=== PATIENT | male | born 1965 | race Two or more races ===

== ENCOUNTER 2024-03-30 11:08 | Outpatient (AMB) | payer MEDICARE, OTHER, MEDICAID, SELFPAY ==
--- NOTE | 2024-03-30 11:13 | MHC.PC.OV ---
Vital Signs 03/30/24 11:18 Height 5 ft 7 in Weight 174 lb BMI 27.2 BP 168/100 H Blood Pressure Location Lt brachial Position Sitting Pulse 99 Pulse Source Pulse Oximeter Pulse Oximetry (%) 98 Oxygen Delivery Method Room Air Intake Visit Reasons: EST care Anxiety Intake Note: pt is here for initial visit. Allergies No Known Allergies Allergy (Verified 03/30/24 11:27) Medication List - Last Reconciled 03/30/24 by JEFFERSON Bassett No Known Home Meds Tobacco use date assessed: 03/30/24 Dental Screening Dental Screen Date: 03/30/24 Did you have a dental visit in the last 12 months?: Yes Did you have a dental problem in the last 6 months where you did not have access to dental care?: No Was dental information given to patient?: Patient has dentist HPI HPI Comments History of Present Illness Details Patient is a 58-year-old male who I am meeting for the 1st time in do not have any records on. Will need to obtain from previous provider however the patient states he has not seen a PCP in over 15 years. He is accompanied by his daughter. Patient is declining colonoscopy at this time. Patient is due for tetanus vaccine will administer at the appointment today. Patient does not know of any significant past medical history. Does have strong family history of diabetes, will draw A1c. 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 Patient was found to be hypertensive at this appointment today. Denies dizziness, headache, chest pain, numbness, nausea, vomiting, diarrhea. Patient will be started on losartan 25 mg p.o. daily, will be scheduled for 1 week follow-up in office for blood pressure recheck. Blood pressure cough and to take daily measurements and record them. FORMERLY [facility] Surgical History No pertinent past surgical history Family History (Updated 03/30/24 @ 11:30 by JEFFERSON Bassett) Mother Diabetes type 2, controlled Brother Diabetes type 2, controlled Social History (Updated 03/30/24 @ 11:30 by JEFFERSON Bassett) Housing: Apartment Patient Tobacco Use Status: Never used Tobacco e-Cigarette/Vaping Use: Never Used service: No Current occupational status: disabled Current occupational exposures/hazards: No Cognitive needs: Yes Hearing needs: No Vision needs: Yes Questionnaire PHQ-9 Over the last 2 weeks, how often have you been bothered by any of the following problems? 1. Little interest or pleasure in doing things: not at all 2. Feeling down, depressed, or hopeless: not at all 3. Trouble falling or staying asleep, or sleeping too much: several days 4. Feeling tired or having little energy: several days 5. Poor appetite or overeating: not at all 6. Feeling bad about yourself - or that you are a failure or have let yourself or your family down: not at all 7. Trouble concentrating on things, such as reading the newspaper or watching television: not at all 8. Moving or speaking so slowly that other people could have noticed. Or the opposite - being so fidgety or restless that you have been moving around a lot more than usual: not at all 9. Thoughts that you would be better off or of hurting yourself in some way: not at all Total score: 2 Depression Screening Interpretation: Negative Depression Screening Done: Yes 38272 - PHQ-9 Billing: Yes Source: Developed by Drs. Sylvester Jung, Molly Whitman, Hema Haji and colleagues, with an educational wilfredo from [employer]. Thrive Questionnaire Date Thrive assessed: 03/30/24 I am a: Patient What is your living situation today?: I have a steady place to live Within the past 12 months, did the food you bought not last and you didn't have the money to get more?: Never true Within the past 12 months, did you worry whether your food would run out before you got money to buy more?: Never true Do you have trouble paying for medicines?: No Do you have trouble getting transportation to medical appointments?: No Do you have trouble paying your heating and electricity bill?: No Do you have trouble taking care of your child, family member or friend?: No Do you have trouble with day-to-day activities such as bathing, preparing meals, shopping, managing finances, etc.?: Yes (Sometimes) Are you currently unemployed and looking for a job?: No Are you interested in more education?: No Please select the resources that you would like help with: None Currently or been in a relationship where the following occur: no concerns reported THRIVE Score: 0 AUDIT C Alcohol Use Questionnaire (AUDIT-C) 1. How often do you have a drink containing alcohol?: Never Total Score: 0 ELLYN-7 AMB Questionnaire ELLYN-7 Feeling nervous, anxious, or on edge: 1 = Several days Not being able to stop or control worryin = Several days Worrying too much about different things: 1 = Several days Trouble relaxin = Not at all Being so restless that it is hard to sit still: 0 = Not at all Becoming easily annoyed or irritable: 0 = Not at all Feeling afraid as if something awful might happen: 1 = Several days Total ELLYN-7 score (0-4 normal; 5-9 mild; 10-14 moderate; 15-21 severe): 4 Source: Developed by Drs. Sylvester Jung, Molly Whitman, Hema Haji and colleagues, with an educational wilfredo from [employer]. ELLYN-7 Assessment Billing ELLYN-7 Assessment Tool: ELLYN-7 Assessment 14973 Review of Systems Const All systems reviewed & are unremarkable except as noted in HPI and below Physical exam (Primary Care) Vital Signs: Last Vital Signs Pulse 99 03/30/24 11:18 BP 168/100 H 03/30/24 11:18 Pulse Ox 98 03/30/24 11:18 Oxygen Delivery Method Room Air 03/30/24 11:18 Care Plan Goal for BP management: Patient started on losartan 25 mg p.o. daily Next steps: Blood pressure follow-up in 1 week BMI result Body Mass Index 27.2 Tobacco/Smoking Status: Tobacco use Status Tobacco use date assessed 03/30/24 03/30/24 11:23 Patient Tobacco Use Status Never used Tobacco 03/30/24 11:30 e-Cigarette/Vaping Use Never Used 03/30/24 11:30 PHQ-9: PHQ-9 Score PHQ-9: Total score 2 03/30/24 11:25 Depression Screening Interpretation: Negative Thrive Assessment: Date of Thrive Assessment Date Thrive assessed 03/30/24 03/30/24 11:25 Currently or been in a relationship where the following occur: no concerns reported Const Other: Appearance: Alert.? Oriented X3.? No acute distress.? Head: Normocephalic. Neck: Normal inspection.? Neck supple.? CVS: Normal heart rate and rhythm.? Pulses normal.? Respiratory: No respiratory distress.? Breath sounds normal.? Neuro: Oriented X 3.? No motor deficit.? No sensory deficit. Immunizations Boostrix Tdap 2.5 Lf unit-8 mcg-5 Lf/0.5 mL intramuscular syringe Performing Provider: JEFFERSON Bassett Performing Location: [facility] Administered by: Lowell Baig CMA on 03/30/24 11:49 Dose Route Admin Location Dispensed Lot Number Expiration Date NDC [employer] 0.5 mL IM Left Deltoid 0.5 mL [id number] 04/15/26 51525-090-42 [facility] VIS Given Date VIS Provided VIS Publication Date 03/30/24 Single Vaccine 21 Eligibility Eligibility Date Funding Source Not [facility] Eligible 03/30/24 Private Assessment and Plan Assessment & Plan (1) Hypertension: Comment: Patient started 25 mg p.o. daily of losartan. Patient is educated take blood pressure measurements at home. Patient has been educated on signs of worsening symptoms and when to return to the clinic and when to report to the ED. Patient will schedule 1 week follow-up with nurse for blood pressure recheck Will get labs Code(s): I10 - Essential (primary) hypertension Qualifiers: Hypertension type: unspecified Qualified Code(s): I10 - Essential (primary) hypertension Plan: draw labs Plan Will follow-up after blood pressure recheck in lab draw. Orders: Orders TSH reflex Free T4 Today Z13.29 - Encounter for screening for other suspected endocrine disorder PSA,Total (Free>4and<10) Today Z12.5 - Encounter for screening for malignant neoplasm of prostate Hemoglobin A1c Today E11.9 - Type 2 diabetes mellitus without complications TDaP Immunization Today Z23 - Encounter for immunization Vitamin D 25-OH (D2 and D3) Today Z13.21 - Encounter for screening for nutritional disorder Vitamin B6 Today Z13.21 - Encounter for screening for nutritional disorder Vitamin B12 Today Z13.21 - Encounter for screening for nutritional disorder UA CC w/rflx Micro + Cult Today Z13.89 - Encounter for screening for other disorder Lipid Panel Today Z13.220 - Encounter for screening for lipoid disorders Complete Blood Count Auto Diff Today Z13.0 - Encounter for screening for diseases of the blood and blood-forming organs and certain disorders involving the immune mechanism Comprehensive Met. Panel Today Z91.89 - Other specified personal risk factors, not elsewhere classified Medications: New losartan 25 mg PO DAILY 30 tabs 0RF Coding Level of Care Code New Pt Level 3 (53883) Diagnoses Hypertension, unspecified type I10 Hypertension type: unspecified Additional Codes ELLYN-7 Assessment Billing - ELLYN-7 Assessment Tool: ELLYN-7 Assessment 80519 ([id number]) Time Spent (min) 24
[2024-03-30 11:18] VITALS: BP 168/100; PULSE 99; O2SAT 98; BMI 27.2
== END 2024-03-30 14:46 | disposition home or self-care (01) ==
PROVIDERS: Visit Provider Nurse Practitioner Primary Care
DX: I10 Essential (primary) hypertension (principal); Z23 Encounter for immunization
CPT/HCPCS: 90471; 90715; 99203

== ENCOUNTER 2024-04-06 09:35 | Outpatient (REF) | payer MEDICARE, MEDICAID, SELFPAY ==
[2024-04-06 12:09] LABS: MANUAL DIFF FLAG NO
[2024-04-06 12:11] LABS: Basophils Percent Auto 0.6 % (0-2); Eosinophils Absolute Auto 0.2 X10*3/uL (0.0-0.4); Eosinophils Percent Auto 2.9 % (0-4); Hematocrit 45.9 % (42.0-52.0); Hemoglobin 15.7 g/dl (14.0-18.0); Imm Gran Abs Auto 0.02 X10*3/uL (0.00-0.03); Imm Gran Pct Auto 0.3 % (0.0-0.4); Lymphocytes Absolute Auto 1.9 X10*3/uL (1.2-4.9); Mean Corpuscular HGB Conc 34.2 g/dl (31.0-36.0); Mean Corpuscular Hemoglobin 28.5 pg (27.0-33.0); Mean Corpuscular Volume 83.5 fL (80.0-98.0); Mean Platelet Volume 10.3 fL (9.4-12.4); Monocytes Absolute Auto 0.6 X10*3/uL (0.1-1.2); Monocytes Percent Auto 9.3 % (2-11); Neutrophils Absolute Auto 3.5 x10*3/uL (2.0-8.3); Neutrophils Percent Auto 55.9 % (45-73); Platelet Count 258 X10*3/uL (160-400); Red Cell Distribution Width 13.8 % (11.0-16.0); White Blood Count 6.2 X10*3/uL (4.8-10.8)
[2024-04-06 12:26] LABS: Appearance Urine Clear; Color Urine Yellow; Glucose Urine UA Negative (Negative); Leukocyte Esterase Urine Negative (Negative); Nitrite Urine Negative (Negative); Urine Blood Negative (Negative); Urine Ketones Negative (Negative); Urine Protein Negative (Neg-Trace)
[2024-04-06 12:28] LABS: Estimated Average Glucose 143 mg/dL; Hemoglobin A1c % 6.6 % (<6.0)
[2024-04-06 13:00] LABS: PSA,Total (Free>4and<10) 1.65 ng/mL (0.00-4.00)
[2024-04-06 13:05] LABS: Alanine Aminotransferase 19 U/L (0-40); Albumin Level 4.3 g/dL (3.5-5.0); Alkaline Phosphatase 64 U/L (39-117); Anion Gap 12 (12-20); Aspartate Amino Transferase 18 U/L (5-37); Bilirubin Total 0.6 mg/dL (0.0-1.0); Blood Urea Nitrogen 18 mg/dL (9-16); Calcium 9.7 mg/dL (8.4-10.2); Carbon Dioxide 30 mmol/L (22-29); Chloride 103 mmol/L (96-108); Cholesterol 181 mg/dL (<200); Estimated Glomerular Filt Rate > 60; Glucose Random 150 mg/dL (60-115); HDL Cholesterol 48 mg/dL (>40); LDL Cholesterol Calculated 106 mg/dL (<100); Potassium 4.3 mmol/L (3.3-5.1); Sodium 141 mmol/L (135-145); Total Protein 7.8 g/dL (6.5-8.0); Triglycerides 137 mg/dL (<150)
[2024-04-06 13:07] LABS: Vitamin B12 585 pg/mL (200-900)
[2024-04-09 16:48] LABS: Vitamin D 25-OH, D2 <4 ng/mL; Vitamin D 25-OH, D3 31 ng/mL; Vitamin D 25-OH, Total 31 ng/mL (30-100)
[2024-04-10 13:39] LABS: Vitamin B6 9.6 ng/mL (2.1-21.7)
== END 2024-04-06 09:36 | disposition home or self-care (01) ==
LOC: HO.HMGCLDS 09:35
PROVIDERS: PCP Nurse Practitioner Primary Care; Visit Provider Nurse Practitioner Primary Care
DX: E11.9 Type 2 diabetes mellitus without complications (principal); Z13.21 Encounter for screening for nutritional disorder; Z13.29 Encounter for screening for other suspected endocrine disorder; Z12.5 Encounter for screening for malignant neoplasm of prostate; Z13.89 Encounter for screening for other disorder; Z13.220 Encounter for screening for lipoid disorders; Z13.0 Encounter for screening for diseases of the blood and blood-forming organs and certain disorders involving the immune mechanism; Z91.89 Other specified personal risk factors, not elsewhere classified
CPT/HCPCS: 36415; 80053; 80061; 81003; 82306; 82607; 83036; 84153; 84207; 84443; 85025

== ENCOUNTER 2024-04-06 10:43 | Outpatient (AMB) | payer MEDICARE, MEDICAID, OTHER, SELFPAY ==
--- NOTE | 2024-04-06 10:59 | MHC.PC.OV ---
Vital Signs 04/06/24 11:00 04/06/24 11:23 Height 5 ft 7 in Weight 178 lb BMI 27.9 BP 188/100 H 168/102 H Blood Pressure Location Rt brachial Rt brachial Position Sitting Sitting Pulse 98 Pulse Source Pulse Oximeter Pulse Oximetry (%) 99 Oxygen Delivery Method Room Air Intake Visit Reasons: 1 week follow up BP Intake Note: pt is here for 1 week f/u Blood pressure Allergies No Known Allergies Allergy (Verified 04/06/24 11:08) Medication List - Last Reconciled 04/06/24 by JEFFERSON Bassett losartan 25 mg PO DAILY Tobacco use date assessed: 03/30/24 Dental Screening Dental Screen Date: 03/30/24 HPI HPI Comments History of Present Illness Details Patient is a 58-year-old male in today for a hypertension follow-up. Patient had been without medications and was restarted on losartan 25 mg p.o. daily 1 week prior to this visit. Patient presents today with blood pressure still elevated at 162/102. Patient full neuro evaluation negative in office today. He denies symptoms of headache, dizziness, chest pain, shortness a breath, nausea, vomiting, diarrhea. Patient will be instructed to increase his losartan dose to 50 mg p.o. daily. Will follow-up in office in 1 week for blood pressure recheck. He has been educated about signs of worsening symptoms and when to report back to the office or when to present to the emergency room. Patient states he understands. [facility] Surgical History No pertinent past surgical history Family History Mother Diabetes type 2, controlled Brother Diabetes type 2, controlled Social History Housing: Apartment Patient Tobacco Use Status: Never used Tobacco e-Cigarette/Vaping Use: Never Used service: No Current occupational status: disabled Current occupational exposures/hazards: No Cognitive needs: Yes Hearing needs: No Vision needs: Yes Questionnaire Thrive Questionnaire Date Thrive assessed: 03/30/24 Review of Systems Const All systems reviewed & are unremarkable except as noted in HPI and below Neuro Denies Sensory deficit (Neuro) Physical exam (Primary Care) Care Plan Goal for BP management: losartan increased to 50 mg PO daily. Patient instructed to take bp measurements at home Next steps: Follow up BP check in 1 week. Tobacco/Smoking Status: Tobacco use Status Tobacco use date assessed 03/30/24 03/30/24 11:23 Patient Tobacco Use Status Never used Tobacco 03/30/24 11:30 e-Cigarette/Vaping Use Never Used 03/30/24 11:30 Thrive Assessment: Date of Thrive Assessment Date Thrive assessed 03/30/24 03/30/24 11:25 Const General: cooperative and no acute distress Orientation/consciousness: oriented to time Limitations: no limitations HENMT Head: Yes normal to inspection and Yes normocephalic Eyes Pupils: Equal, round and reactive pupils present EOM: EOMs intact bilaterally Direct Ophthalmoscopy: normal light reflex Neck Neck: Yes normal visual inspection Cardio Rate: regular rate Rhythm: regular rhythm Heart sounds: S1 normal heart sound present and S2 normal heart sound present Peripheral pulses: Peripheral pulses 2+ throughout Neuro General: oriented to time and CN's II-XI intact bilaterally Cranial nerves: Yes Equal, round and reactive pupils present, Yes Bilaterally intact EOM present and Yes Midline tongue present Cognition (Neuro): normal cognition Gait exam (Neuro): Normal gait present Motor exam (neuro): 5/5 motor strength present throughout and Pronator motor function not present Sensory Exam: No Sensory deficit (Neuro) Coordination: [id number] test normal Romberg Test: Negative Assessment and Plan Assessment & Plan (1) Hypertension: Comment: Patient is a 58-year-old male in today for a hypertension follow-up. Patient had been without medications and was restarted on losartan 25 mg p.o. daily 1 week prior to this visit. Patient presents today with blood pressure still elevated at 162/102. Patient full neuro evaluation negative in office today. He denies symptoms of headache, dizziness, chest pain, shortness a breath, nausea, vomiting, diarrhea. Patient will be instructed to increase his losartan dose to 50 mg p.o. daily. Will follow-up in office in 1 week for blood pressure recheck. He has been educated on the importance of a low sodium diet. He has been educated about signs of worsening symptoms and when to report back to the office or when to present to the emergency room. Patient states he understands. Code(s): I10 - Essential (primary) hypertension Qualifiers: Hypertension type: unspecified Qualified Code(s): I10 - Essential (primary) hypertension Medications: New blood pressure monitor As directed 1 ea 0RF Coding Level of Care Code Est Pt Level 3 (40513) Diagnoses Hypertension, unspecified type I10 Hypertension type: unspecified Time Spent (min) 26
[2024-04-06 11:00] VITALS: BP 188/100; PULSE 98; O2SAT 99; BMI 27.9
[2024-04-06 11:23] VITALS: BP 168/102
== END 2024-04-06 12:50 | disposition home or self-care (01) ==
PROVIDERS: Visit Provider Nurse Practitioner Primary Care
DX: I10 Essential (primary) hypertension (principal)
CPT/HCPCS: 99213

== ENCOUNTER 2024-04-13 14:18 | Outpatient (AMB) | payer MEDICARE, OTHER, MEDICAID, SELFPAY ==
--- NOTE | 2024-04-13 14:19 | A.OFFPC_ITS ---
Vital Signs 04/13/24 14:30 Height 5 ft 7 in BP 184/98 H Blood Pressure Location Rt brachial Position Sitting Pulse 127 H Pulse Source Pulse Oximeter Intake Visit Reasons: Elevated BP and pulse Intake Note: pt is here for elevated BP and pulse Allergies No Known Allergies Allergy (Verified 04/13/24 14:20) Tobacco use date assessed: 04/13/24 Dental Screening Dental Screen Date: 04/13/24 HPI HPI Comments History of Present Illness Details Patient is a 58-year-old male in today for hypertension follow-up. Patient had his losartan titrated up from 25 mg to 50 mg p.o. daily 1 week prior. Patient arrives at the appointment today with blood pressure elevated. He is also tachycardic. He states that he has feels better since starting the medication, denies headache, dizziness, numbness, chest pain, shortness a breath, nausea, vomiting, diarrhea Will obtain EKG in office today. Patient has blood pressure cuff at home will continue to take measurements. FORMERLY [facility] Surgical History No pertinent past surgical history Family History Mother Diabetes type 2, controlled Brother Diabetes type 2, controlled Social History Housing: Apartment Patient Tobacco Use Status: Never used Tobacco e-Cigarette/Vaping Use: Never Used service: No Current occupational status: disabled Current occupational exposures/hazards: No Cognitive needs: Yes Hearing needs: No Vision needs: Yes Questionnaire Thrive Questionnaire Date Thrive assessed: 03/30/24 Review of Systems Const All systems reviewed & are unremarkable except as noted in HPI and below Denies chills, Denies fatigue, Denies fever(s) and Denies headache(s) Eyes Denies blurry vision and Denies diplopia ENT Denies dizziness and Denies headache(s) Card Denies chest pain and Denies dyspnea Resp Denies dyspnea GI Denies diarrhea, Denies nausea and Denies vomiting Neuro Denies dizziness and Denies headache(s) Psych Denies homicidal ideation and Denies suicidal ideation Endo Denies fatigue Physical exam (Primary Care) Care Plan Goal for BP management: Patient will be started on new medication Next steps: Will follow up in 3 days for BP re-check. Tobacco/Smoking Status: Tobacco use Status Tobacco use date assessed 04/13/24 04/13/24 14:22 Patient Tobacco Use Status Never used Tobacco 04/13/24 14:22 e-Cigarette/Vaping Use Never Used 04/13/24 14:22 Thrive Assessment: Date of Thrive Assessment Date Thrive assessed 03/30/24 04/13/24 14:22 Const Other: Appearance: Alert.? Oriented X3.? No acute distress.? Head: Normocephalic, atraumatic, no step-offs or deformities Eyes: Pupils equal, round and reactive to light.?EOMI Neck: Normal inspection.? Neck supple.? CVS: +Tacycardia and rhythm.? Pulses normal.? Respiratory: No respiratory distress.? Breath sounds normal.? Neuro: Oriented X 3.? No motor deficit.? No sensory deficit. CN 2-12 intact Office Procedures EKG [id number], Complete Assessment and Plan Assessment & Plan (1) Hypertension: Comment: Patient is currently utilizing 50 mg losartan p.o. daily. Blood pressure is still elevated at today's appointment though he offers no complaints. Patient have metoprolol 25 mg p.o. b.i.d. added to his medication regimen. Patient has been instructed to take blood pressure measurements at home He has appointment for blood pressure recheck in 4 days in office Code(s): I10 - Essential (primary) hypertension Qualifiers: Hypertension type: unspecified Qualified Code(s): I10 - Essential (primary) hypertension (2) Abnormal EKG: Comment: Tachycardia with possible left atrial enlargement. Patient will get referral to Cardiology. Code(s): R94.31 - Abnormal electrocardiogram [ECG] [EKG] Plan: Take your medications as prescribed. If you were prescribed antibiotics today, it is important that you take your medication to their entirety, do not skip any doses, do not finish them early. Follow-up with your primary care provider this week. Present to the emergency department with new or worsening symptoms. Such as fevers, chills, chest pain, shortness of breath, nausea, vomiting, dizziness, headache, vision changes, lethargy In case of emergency call 911 Plan follow up for BP recheck in 4 days. Orders: Orders AMB EKG-In Office Today Z13.6 - Encounter for screening for cardiovascular sarah russell Referrals Cardiology Referral I10 - Essential (primary) hypertension, R94.31 - Abnormal electrocardiogram [ECG] [EKG] Medications: New metoprolol tartrate 25 mg PO BID 60 tabs 0RF Coding Level of Care Code Est Pt Level 3 (14344) Diagnoses Hypertension, unspecified type I10 Hypertension type: unspecified Abnormal EKG R94.31 CPT Codes EKG - CPT: 35269-[id number], Complete ([id number]) Time Spent (min) 25
[2024-04-13 14:30] VITALS: BP 184/98; PULSE 127
== END 2024-04-13 15:21 | disposition home or self-care (01) ==
LOC: HO.HMGC 14:18
PROVIDERS: PCP Nurse Practitioner Primary Care; Visit Provider Nurse Practitioner Primary Care
DX: I10 Essential (primary) hypertension (principal); R94.31 Abnormal electrocardiogram [ECG] [EKG]
CPT/HCPCS: 93000; 99213

== ENCOUNTER 2024-04-27 13:04 | Outpatient (AMB) | payer MEDICARE, OTHER, MEDICAID, SELFPAY ==
--- NOTE | 2024-04-27 13:05 | MHC.PC.OV ---
Vital Signs 04/27/24 13:07 Height 5 ft 7 in Weight 166 lb BMI 26.0 BP 180/108 H Blood Pressure Location Rt brachial Position Sitting Pulse 100 Pulse Source Pulse Oximeter Pulse Oximetry (%) 98 Oxygen Delivery Method Room Air Intake Visit Reasons: PE Intake Note: pt is here for annual PE. Colonoscopy due Allergies No Known Allergies Allergy (Verified 04/27/24 13:15) Medication List - Last Reconciled 04/27/24 by JEFFERSON Bassett amlodipine 5 mg PO DAILY blood pressure monitor BP cuff and monitor losartan 100 mg PO DAILY metformin ER 500 mg PO DAILY metoprolol tartrate 25 mg PO BID Tobacco use date assessed: 04/27/24 Dental Screening Dental Screen Date: 04/13/24 HPI HPI Comments History of Present Illness Details patient is a 58-year-old male in today for his physical exam. Patient is up-to-date on his Tdap. Will give Prevnar 20 today. Patient is declining colonoscopy. Patient is up-to-date with PSA-within normal limits. He has a past medical history significant for: Hypertension - currently utilizing losartan 100 mg p.o. daily as well as metoprolol 25 mg p.o. b.i.d. he has had little response to blood pressure medication regimen. Will refer patient to Nephrology. Denies symptoms of headache, chest pain, shortness a breath, dizziness, nausea, vomiting, diarrhea. Diabetes type 2 - patient utilizing metformin 500 mg p.o. daily extended release. Blindness in left eye. ON LICENSE OF [facility] Surgical History No pertinent past surgical history Family History Mother Diabetes type 2, controlled Brother Diabetes type 2, controlled Social History Housing: Apartment Patient Tobacco Use Status: Never used Tobacco e-Cigarette/Vaping Use: Never Used service: No Current occupational status: disabled Current occupational exposures/hazards: No Cognitive needs: Yes Hearing needs: No Vision needs: Yes Questionnaire PHQ-9 Over the last 2 weeks, how often have you been bothered by any of the following problems? 1. Little interest or pleasure in doing things: several days 2. Feeling down, depressed, or hopeless: several days 3. Trouble falling or staying asleep, or sleeping too much: more than half the days 4. Feeling tired or having little energy: several days 5. Poor appetite or overeating: several days 6. Feeling bad about yourself - or that you are a failure or have let yourself or your family down: not at all 7. Trouble concentrating on things, such as reading the newspaper or watching television: several days 8. Moving or speaking so slowly that other people could have noticed. Or the opposite - being so fidgety or restless that you have been moving around a lot more than usual: several days 9. Thoughts that you would be better off or of hurting yourself in some way: not at all Total score: 8 Depression Screening Interpretation: Negative Depression Screening Done: Yes 29839 - PHQ-9 Billing: Yes Source: Developed by Drs. Sylvester Jung, Molly Whitman, Hema Haji and colleagues, with an educational wilfredo from [employer]. Thrive Questionnaire Date Thrive assessed: 04/27/24 I am a: Patient What is your living situation today?: I have a steady place to live Within the past 12 months, did the food you bought not last and you didn't have the money to get more?: Never true Within the past 12 months, did you worry whether your food would run out before you got money to buy more?: Never true Do you have trouble paying for medicines?: No Do you have trouble getting transportation to medical appointments?: No Do you have trouble paying your heating and electricity bill?: No Do you have trouble taking care of your child, family member or friend?: No Do you have trouble with day-to-day activities such as bathing, preparing meals, shopping, managing finances, etc.?: Yes Are you currently unemployed and looking for a job?: No Are you interested in more education?: No Please select the resources that you would like help with: Transportation, Care for elder or disabled and Daily support Currently or been in a relationship where the following occur: I choose not to answer THRIVE Score: 0 AUDIT C Alcohol Use Questionnaire (AUDIT-C) 1. How often do you have a drink containing alcohol?: Never Total Score: 0 ELLYN-7 AMB Questionnaire ELLYN-7 Date ELLYN - 7 assessed: 04/27/24 Feeling nervous, anxious, or on edge: 1 = Several days Not being able to stop or control worryin = More than half the days Worrying too much about different things: 2 = More than half the days Trouble relaxin = More than half the days Being so restless that it is hard to sit still: 2 = More than half the days Becoming easily annoyed or irritable: 1 = Several days Feeling afraid as if something awful might happen: 2 = More than half the days Total ELLYN-7 score (0-4 normal; 5-9 mild; 10-14 moderate; 15-21 severe): 12 Source: Developed by Drs. Sylvester Jung, Molly Whitman, Hema Haji and colleagues, with an educational wilfredo from [employer]. ELLYN-7 Assessment Billing ELLYN-7 Assessment Tool: ELLYN-7 Assessment 49475 Review of Systems Const All systems reviewed & are unremarkable except as noted in HPI and below Physical exam (Primary Care) Vital Signs: Last Vital Signs Pulse 100 04/27/24 13:07 BP 180/108 H 04/27/24 13:07 Pulse Ox 98 04/27/24 13:07 Oxygen Delivery Method Room Air 04/27/24 13:07 Care Plan Goal for BP management: Patient will have 5 mg p.o. amlodipine added to his regimen. Will refer to Nephrology BMI result Body Mass Index 26.0 Tobacco/Smoking Status: Tobacco use Status Tobacco use date assessed 04/27/24 04/27/24 13:12 Patient Tobacco Use Status Never used Tobacco 04/27/24 13:05 e-Cigarette/Vaping Use Never Used 04/27/24 13:05 PHQ-9: PHQ-9 Score PHQ-9: Total score 10 04/27/24 13:12 Depression Screening Interpretation: Negative Thrive Assessment: Date of Thrive Assessment Date Thrive assessed 04/27/24 04/27/24 13:12 Currently or been in a relationship where the following occur: I choose not to answer Const Other: Appearance: Alert.? Oriented X3.? No acute distress.? Head: Normocephalic, atraumatic, no step-offs or deformities Eyes: Sclera white. ENT: Pharynx normal.?TM intact and pearly dickinson. Neck: Normal inspection.? Neck supple.? CVS: Normal heart rate and rhythm.? Pulses normal.? Respiratory: No respiratory distress.? Breath sounds normal.? Abdomen: Soft and nontender.? Skin: Skin warm and dry.? Normal skin color.? Normal skin turgor.? Extremities: No lower extremity edema.? No calf ttp. 5/5 strength to bilateral upper and lower extremities Back: No midline tenderness, no C-spine tenderness, full range of motion, no CVA tenderness bilaterally Neuro: Oriented X 3.? No motor deficit.? No sensory deficit. CN 2-12 intact Immunizations pneumoc 20-leonides conj-dip cr(PF) 0.5 mL IM syringe Performing Provider: JEFFERSON Bassett Performing Location: [facility] Administered by: Lowell Baig CMA on 04/27/24 13:32 Dose Route Admin Location Dispensed Lot Number Expiration Date [employer] 0.5 mL IM Left Deltoid 0.5 mL [id number] 04/12/25 2644-7805-45 [employer] VIS Given Date VIS Provided VIS Publication Date 04/27/24 Single Vaccine 21 Eligibility Eligibility Date Funding Source Not VFC Eligible 04/27/24 Private Assessment and Plan Assessment & Plan (1) Physical exam: Comment: Patient is up-to-date on his Tdap. Will give Prevnar 20 today. Patient is declining colonoscopy. Patient is up-to-date with PSA-within normal limits. He has a past medical history significant for: Hypertension - currently utilizing losartan 100 mg p.o. daily as well as metoprolol 25 mg p.o. b.i.d. he has had little response to blood pressure medication regimen. Will refer patient to Nephrology. Denies symptoms of headache, chest pain, shortness a breath, dizziness, nausea, vomiting, diarrhea. Diabetes type 2 - patient utilizing metformin 500 mg p.o. daily extended release. Patient had eye exam today. He will get podiatry referral. Blindness in left eye. Code(s): Z00.00 - Encounter for general adult medical examination without abnormal findings (2) Hypertension: Comment: Patient utilizing metoprolol tartrate 25 mg p.o. b.i.d. in addition to losartan 100 mg p.o. daily. Patient will have 5 mg amlodipine added to regimen. Will refer to Nephrology Patient has been educated on signs of worsening symptoms and when to return to the office or when to present to the ED. Code(s): I10 - Essential (primary) hypertension Qualifiers: Hypertension type: unspecified Qualified Code(s): I10 - Essential (primary) hypertension (3) Abnormal EKG: Comment: Tachycardia with possible left atrial enlargement. Patient will get referral to Cardiology. Code(s): R94.31 - Abnormal electrocardiogram [ECG] [EKG] Orders: Orders Microalbumin, Random (w Creat) Today E11.9 - Type 2 diabetes mellitus without complications Pneumococcal 20 Immunization Today Z23 - Encounter for immunization Referrals Nephrology Referral I10 - Essential (primary) hypertension Podiatry Referral E11.9 - Type 2 diabetes mellitus without complications Medications: New amlodipine 5 mg PO DAILY 90 tabs 0RF fluticasone propionate 50 mcg/actuation (Flonase Allergy Relief) administer into each nostril 1 spray intranasal DAILY 16 grams 0RF blood-glucose meter (OneTouch Ultra2 Meter) As directed 1 ea 0RF blood sugar diagnostic (OneTouch Ultra Test strips) As directed 50 ea 0RF lancets (Onetouch Delica Safety Lancet) As directed 200 ea 0RF Coding Level of Care Code Est Pt Level 3 (79315) Diagnoses Physical exam Z00.00 Hypertension, unspecified type I10 Hypertension type: unspecified Abnormal EKG R94.31 Additional Codes ELLYN-7 Assessment Billing - ELLYN-7 Assessment Tool: ELLYN-7 Assessment 84717 ([id number]) Time Spent (min) 24
[2024-04-27 13:07] VITALS: BP 180/108; PULSE 100; O2SAT 98; BMI 26.0
== END 2024-04-27 14:05 | disposition home or self-care (01) ==
PROVIDERS: PCP Nurse Practitioner Primary Care; Visit Provider Nurse Practitioner Primary Care
DX: Z00.00 Encounter for general adult medical examination without abnormal findings (principal); I10 Essential (primary) hypertension; R94.31 Abnormal electrocardiogram [ECG] [EKG]; Z23 Encounter for immunization
CPT/HCPCS: 90471; 90677; 99213; 99396

== ENCOUNTER 2024-05-11 15:44 | Outpatient (AMB) | payer MEDICARE, MEDICAID, SELFPAY ==
[2024-05-11 15:48] VITALS: BP 160/82; PULSE 91; O2SAT 99; BMI 26.0
--- NOTE | 2024-05-11 15:48 | MHC.OFFVIS ---
Vital Signs 05/11/24 15:48 05/11/24 16:06 05/11/24 16:06 Height 5 ft 7 in Weight 166 lb BMI 26.0 BP 160/82 H 140/80 H 140/80 H Blood Pressure Location Lt brachial Rt brachial Lt brachial Position Sitting Sitting Standing Pulse 91 Pulse Source Pulse Oximeter Pulse Oximetry (%) 99 Oxygen Delivery Method Room Air Intake Visit Reasons: Hypertension Intake Note: [facility] nurse ldr declined, refusal form signed and scanned into patient chart. Senior Sales Compensation Analyst Required: No Senior Sales Compensation Analyst Services: Senior Sales Compensation Analyst Offered & Declined Accompanied by: Daughter In Law Allergies No Known Allergies Allergy (Verified 05/18/24 12:42) Medication List - Last Reconciled 05/11/24 by Cristopher Garces MD amlodipine 5 mg PO DAILY blood pressure monitor BP cuff and monitor blood sugar diagnostic ([employer] Ultra Test strips) Check fasting blood sugar once daily before a meal blood-glucose meter ([employer] Ultra2 Meter) As directed fluticasone propionate 50 mcg/actuation (Flonase Allergy Relief) 1 spray intranasal DAILY lancets (appweevr Delica Safety Lancet) Check blood sugar once a day before meals losartan 100 mg PO DAILY metformin ER 500 mg PO DAILY metoprolol tartrate 25 mg PO BID HPI Comments Details: 57-year-old man with a history of hypertension has been referred for evaluation of hypertension. [facility] Surgical History No pertinent past surgical history Family History Mother Diabetes type 2, controlled Brother Diabetes type 2, controlled Social History Housing: Apartment Patient Tobacco Use Status: Never used Tobacco e-Cigarette/Vaping Use: Never Used service: No Current occupational status: disabled Current occupational exposures/hazards: No Cognitive needs: Yes Hearing needs: No Vision needs: Yes Review of Systems Const Denies fever(s) and Denies weight loss Card Denies chest pain Resp Denies cough and Denies hemoptysis GI Denies abdominal pain, Denies diarrhea and Denies nausea Musc Denies back pain Neuro Denies focal weakness Physical Exam Vital Signs: Last Vital Signs Pulse 91 05/11/24 15:48 BP 140/80 H 05/11/24 16:06 Pulse Ox 99 05/11/24 15:48 Oxygen Delivery Method Room Air 05/11/24 15:48 BMI result Body Mass Index 26.0 Awake. Comfortable. Neck is supple. Mucosa moist. Lungs air entry equal Heart S1-S2 heard no gallop. Abdomen soft. Extremities no edema. No involuntary movements. No myoclonus. Results Reviewed Results Reviewed: Labs reviewed. Urinalysis no protein by dipstick. Serum creatinine 1.0. Assessment & Plan Assessment & Plan (1) Hypertension: Comment: Patient utilizing metoprolol tartrate 25 mg p.o. b.i.d. in addition to losartan 100 mg p.o. daily. Patient will have 5 mg amlodipine added to regimen. Patient has been educated on signs of worsening symptoms and when to return to the office or when to present to the ED. Code(s): I10 - Essential (primary) hypertension Category: Medical Qualifiers: Hypertension type: unspecified Qualified Code(s): I10 - Essential (primary) hypertension Plan Pleasant 49-year-old man with hypertension. Today blood pressure seems to be in the normal range. In the past blood pressure has been significantly elevated. He probably has underlying essential hypertension. Secondary causes seem unlikely. Renal function appears stable. No significant proteinuria by dipstick. However non albumin proteinuria needs to be excluded. I will check urine protein creatinine ratio. Goal is to maintain blood pressure less than 130/80 Stay on low-sodium diet No changes were made to medication today. Further workup will be based on the outcome of the above baseline investigations. Orders: Orders Total Protein Urine Random 05/11/24 I10 - Essential (primary) hypertension Creatinine Urine 05/11/24 I10 - Essential (primary) hypertension Basic Metabolic Panel 05/11/24 I10 - Essential (primary) hypertension Coding Level of Care Code New Pt Level 4 (27012) Diagnoses Hypertension, unspecified type I10 Hypertension type: unspecified
[2024-05-11 16:06] VITALS: BP 140/80
== END 2024-05-11 16:10 | disposition home or self-care (01) ==
PROVIDERS: PCP Nurse Practitioner Primary Care; Referring Provider Nurse Practitioner Primary Care; Visit Provider Internal Medicine Hypertension Specialist
DX: I10 Essential (primary) hypertension (principal)
CPT/HCPCS: 99204

== ENCOUNTER → 2024-05-11 15:44 | Outpatient (BNVA) | payer MEDICARE, MEDICAID, SELFPAY | PROVIDERS: PCP Nurse Practitioner Primary Care; Referring Provider Nurse Practitioner Primary Care; Visit Provider Internal Medicine Hypertension Specialist | DX: I10 Essential (primary) hypertension (principal) | CPT/HCPCS: 99202 ==

== ENCOUNTER 2024-05-18 11:40 | Outpatient (AMB) | payer MEDICARE, MEDICAID, SELFPAY ==
[2024-05-18 12:42] VITALS: BP 128/80; PULSE 71; TEMP 36.1; O2SAT 99; BMI 25.8
--- NOTE | 2024-05-18 12:42 | AM.OFFWIN_ITS ---
Intake Vital Signs 05/18/24 12:42 Height 5 ft 7 in Weight 165 lb BMI 25.8 BP 128/80 Blood Pressure Location Rt brachial Position Sitting Pulse 71 Pulse Source Pulse Oximeter Temp 97.0 F Temp Source Temporal Artery Scan Pulse Oximetry (%) 99 Oxygen Delivery Method Room Air Intake Visit Reasons: EP RT Leg pain Intake Note: pt c/o RT leg pain. Ongoing. Worse past few days Patient Tobacco Use Status: Never used Tobacco Allergies No Known Allergies Allergy (Verified 05/18/24 12:42) Do you need a note to return to daycare/school/sports/work: No HPI EP RT Leg pain HPI Details This note is constructed using voice recognition software. While every effort has been made to ensure accuracy, conference coordinator errors may have been included. The patient is a 58 year old man who presents to the clinic today with right leg pain. [facility] Surgical History No pertinent past surgical history Family History Mother Diabetes type 2, controlled Brother Diabetes type 2, controlled Social History Housing: Apartment Patient Tobacco Use Status: Never used Tobacco e-Cigarette/Vaping Use: Never Used service: No Current occupational status: disabled Current occupational exposures/hazards: No Cognitive needs: Yes Hearing needs: No Vision needs: Yes Review of Systems Const All systems reviewed & are unremarkable except as noted in HPI and below Physical Exam Vital Signs: Last Vital Signs Temp 97.0 F 05/18/24 12:42 Pulse 71 05/18/24 12:42 BP 128/80 05/18/24 12:42 Pulse Ox 99 05/18/24 12:42 Oxygen Delivery Method Room Air 05/18/24 12:42 BMI result Body Mass Index 25.8 Const General: cooperative, healthy appearing, comfortable, no acute distress and alert Orientation/consciousness: patient oriented x3 Limitations: no limitations Skin General skin exam: no rashes or lesions noted, elasticity normal and turgor normal Neuro General: patient oriented x3 Extrem Other: Crepitus on extension and flexion of right knee. Distal neurovascular exam intact. No areas tender to palpation. General: Yes normal to inspection, Yes full ROM, Yes capillary refill normal and Yes normal exam except as noted Psych Appearance: grossly normal Mental Status: mental status grossly normal Speech and movement: Normal speech and movement present Affect: normal affect Assessment & Plan Assessment & Plan (1) Pain in right knee: Code(s): M25.561 - Pain in right knee Qualifiers: Chronicity: chronic Qualified Code(s): M25.561 - Pain in right knee; G89.29 - Other chronic pain Plan: Chronic in nature, we will obtain x-ray to rule in her out osteoarthritis. Trial NSAIDs as needed for pain. Script provided for DME for a cane. Advised patient that this may need to come from primary care provider for insurance approval. Advised patient to follow with PCP for ongoing management. Plan See above for full details and plan. Orders: Orders XR knee RT 2V Today M25.561 - Pain in right knee Coding Level of Care Code Est Pt Level 4 (99499) Diagnoses Chronic pain of right knee M25.561; G89.29 Chronicity: chronic
== END 2024-05-18 13:41 | disposition home or self-care (01) ==
PROVIDERS: PCP Nurse Practitioner Primary Care; Visit Provider Registered Nurse
DX: M25.561 Pain in right knee (principal); G89.29 Other chronic pain
CPT/HCPCS: 99214

== ENCOUNTER 2024-05-18 13:24 | Outpatient (REF) | payer MEDICARE, MEDICAID, SELFPAY ==
--- NOTE | ~2024-05-18 | XR_ITS ---
EXAMINATION: XR KNEE, RIGHT CLINICAL INFORMATION: Right knee pain COMPARISON: None available. TECHNIQUE: Four views of the right knee. FINDINGS: Mild to moderate degenerative changes seen with mild compartmental narrowing and tibial and femoral osteophytes along with narrowing of the patellofemoral joint. No significant joint effusion is seen. No chondrocalcinosis. No fractures or dislocations. XR/XR knee RT 4V IMPRESSION: Mild to moderate tricompartmental degenerative changes.
== END 2024-05-18 13:25 | disposition home or self-care (01) ==
LOC: HO.HMGCX 13:24
PROVIDERS: PCP Internal Medicine; Visit Provider Registered Nurse
DX: M25.561 Pain in right knee (principal)
CPT/HCPCS: 73564

== ENCOUNTER 2024-07-09 09:03 | Outpatient (AMB) | payer MEDICARE, MEDICAID, SELFPAY ==
[2024-07-09 09:06] VITALS: BP 130/82; PULSE 84; BMI 26.2
--- NOTE | 2024-07-09 09:06 | A.OFFVIS_ITS ---
Vital Signs 07/09/24 09:06 Height 5 ft 7 in Weight 167 lb 8.821 oz BMI 26.2 BP 130/82 Blood Pressure Location Lt brachial Position Sitting Pulse 84 Intake Visit Reasons: manager behavior/brennane/abn ecg/ekg/htn Intake Note: New patient dx abnormal ekg and HTN feeling good Bridal Service Sales And Management Required: Yes Bridal Service Sales And Management Services: Bridal Service Sales And Management Present Bridal Service Sales And Management Name: dayanara Charles Bread Packer: Bread Packer Present Accompanied by: daughter amador Allergies No Known Allergies Allergy (Verified 05/18/24 12:42) Medication List - Last Reconciled 07/09/24 by Germán Abad MD amlodipine 5 mg PO DAILY blood pressure monitor BP cuff and monitor blood sugar diagnostic ([employer] Ultra Test strips) Check fasting blood sugar once daily before a meal blood-glucose meter ([employer] Ultra2 Meter) As directed cane As directed cane Use As directed NS fluticasone propionate 50 mcg/actuation (Flonase Allergy Relief) 1 spray intranasal DAILY 3 months lancets (M-DA[employer]uch Delica Safety Lancet) Check blood sugar once a day before meals losartan 100 mg PO DAILY metformin ER 500 mg PO DAILY metoprolol tartrate 25 mg PO BID HPI Comments Details: Faheem was referred here initially as per the izgjevsm-zz-bcp who is patient's PC and pediatric oncologist. Patient is 59-year-old male with history of recently diagnose significant hypertension, tachycardia diabetes. At that time he is having lost symptoms dizziness and blood pressure was in the 200 systolic over 100 diastolic range. Also having sinus tachycardia. Since then he has been started on medications with metoprolol, losartan as well as amlodipine therapy. This has led to improvement in his blood pressure improvement in his symptoms. EKGs at that time had shown sinus tachycardia with nonspecific ST changes. Patient says he has no obvious significant cardiac symptoms although his limited exercise walking long distance due to right knee pain. He denies any exertional chest pain at current workload. No shortness of breath. No orthopnea, PND, leg edema. No prolonged palpitation irregular heartbeat. Today comes in and noted to be with normal blood pressure normal heart rate on current medications. [facility] Surgical History No pertinent past surgical history Family History Mother Diabetes type 2, controlled Brother Diabetes type 2, controlled Social History Housing: Apartment Patient Tobacco Use Status: Never used Tobacco e-Cigarette/Vaping Use: Never Used service: No Current occupational status: disabled Current occupational exposures/hazards: No Cognitive needs: Yes Hearing needs: No Vision needs: Yes Review of Systems Const Denies chills, Denies daytime sleepiness, Denies fatigue, Denies fever(s), Denies frequent falls, Denies poor appetite, Denies snoring, Denies stops breathing during sleep, Denies weakness, Denies weight gain and Denies weight l oss Eyes Denies loss of vision ENT Denies dizziness and Denies hearing loss Card Denies chest pain, Denies claudication, Denies leg edema, Denies lightheadedness, Denies palpitations, Denies dyspnea, Denies dyspnea on exertion and Denies orthopnea Resp Denies cough, Denies excessive phlegm production, Denies dyspnea, Denies dyspnea on exertion, Denies snoring and Denies wheezing GI Denies abdominal pain, Denies hematochezia, Denies change in bowel habits, Denies nausea and Denies vomiting Denies dysuria and Denies urinary frequency Musc Denies arthralgias, Denies muscle weakness, Denies numbness and Denies other (f requent falls) Skin/Breast Denies nail changes and Denies rash Neuro Denies Abnormal speech present, Denies dizziness, Denies frequent falls, Denies loss of vision, Denies memory loss, Denies numbness and Denies weakness Psych Denies depression and Denies memory loss Endo Denies fatigue and Denies palpitations Yohan/Lymph Reports easy bruising and Reports other (anemia) Aller/Immun Denies wheezing Physical Exam Vital Signs: Last Vital Signs Pulse 84 07/09/24 09:06 BP 130/82 07/09/24 09:06 BMI result Body Mass Index 26.2 Const General: cooperative, comfortable, no acute distress, alert and awake Nutritional Appearance: average body habitus Orientation/consciousness: patient oriented x3 Limitations: ambulation with cane HEENT Head: Yes normocephalic and Yes atraumatic Neck Neck: Yes trachea midline, Yes supple and Yes no JVD Resp Effort & Inspection: normal respiratory effort Auscultation: clear to auscultation bilaterally Cardio Jugular venous distension: no JVD Palpation: normal PMI Rate: regular rate Rhythm: regular rhythm Heart sounds: S1 normal heart sound present, S2 normal heart sound present, no click, no gallops, no murmurs and no rubs Bruits: no carotid bruits GI Auscultation: normal bowel sounds Skin General skin exam: no rashes or lesions noted Neuro General: patient oriented x3 and no focal motor deficits Speech: No Abnormal speech present Extrem General: Yes no clubbing, cyanosis or edema Office Procedures EKG Details: EKG shows normal sinus rhythm with normal EKG with nonspecific Flattening of T- waves 18712-Uzhtnnrmrqmzuhrhk, Complete Assessment & Plan Assessment & Plan (1) Abnormal EKG: Comment: Tachycardia with possible left atrial enlargement. Patient will get referral to Cardiology. Code(s): R94.31 - Abnormal electrocardiogram [ECG] [EKG] Category: Medical Plan: Abnormal EKG in this middle-aged man with multiple risk factors including hypertension diabetes with limited exercise capacity. Myocardial ischemia is likely given his multiple risk factors. I would suggest a vasodilating myocardial perfusion imaging to further assess for therapy and for further risk stratification. Given his hypertension, will suggest an echocardiogram to evaluate for LV systolic and diastolic function to evaluate for hypertensive heart disease. Management was discussed with him. Currently his blood pressure is very well optimized on current therapy. His diabetes under your care with goal hemoglobin A1c less than 7%. He should also be on statin therapy to target goal LDL less than 70 mg/dL given his diabetes and vascular risk equivalent. Will follow up in the clinic if need be. Thank you for allowing me to partake in his care Orders: Orders CA lexiscan stress w kendra Today R94.31 - Abnormal electrocardiogram [ECG] [EKG] CA echo transthoracic complete Today R94.31 - Abnormal electrocardiogram [ECG] [EKG] Coding Level of Care Code New Pt Level 4 (92080) Diagnoses Abnormal EKG R94.31 CPT Codes EKG - CPT: 78521-Bwlmkysezdmqpkvoe, Complete ([id number])
== END 2024-07-09 09:33 | disposition home or self-care (01) ==
PROVIDERS: PCP Nurse Practitioner Primary Care; Visit Provider Internal Medicine Cardiovascular Disease
DX: R94.31 Abnormal electrocardiogram [ECG] [EKG] (principal)
CPT/HCPCS: 93010; 99204

== ENCOUNTER → 2024-07-09 09:03 | Outpatient (BNVA) | payer MEDICARE, MEDICAID, SELFPAY | PROVIDERS: PCP Nurse Practitioner Primary Care; Visit Provider Internal Medicine Cardiovascular Disease | DX: I10 Essential (primary) hypertension (principal); R94.31 Abnormal electrocardiogram [ECG] [EKG] | CPT/HCPCS: 93005; 99202 ==

== ENCOUNTER 2024-08-06 13:45 | Outpatient (REF) | payer MEDICARE, MEDICAID, SELFPAY ==
[2024-08-06 14:55] LABS: Anion Gap 12 (12-20); Blood Urea Nitrogen 17 mg/dL (9-16); Calcium 10.3 mg/dL (8.4-10.2); Carbon Dioxide 28 mmol/L (22-29); Chloride 104 mmol/L (96-108); Estimated Glomerular Filt Rate > 60; Glucose Random 133 mg/dL (60-115); Potassium 5.1 mmol/L (3.3-5.1); Sodium 139 mmol/L (135-145)
[2024-08-06 14:56] LABS: Total Protein Urine Random < 7 mg/dL (<12)
== END 2024-08-06 13:46 | disposition home or self-care (01) ==
LOC: HO.LAB 13:45
PROVIDERS: PCP Internal Medicine; Visit Provider Internal Medicine Hypertension Specialist
DX: I10 Essential (primary) hypertension (principal)
CPT/HCPCS: 36415; 80048; 82570; 84156

== ENCOUNTER 2024-08-10 07:00 | Outpatient (RCR) | payer MEDICARE, MEDICAID, SELFPAY ==
--- NOTE | 2024-06-17 13:54 | MHC.PT.EP ---
[facility] [place] Office [place] Office [place] Office [address] [phone] F: [phone] F: [phone] F: [phone] F: [phone] Physical Therapy Plan of Care Date of Evaluation: 06/17/24 Date of Surgery: Diagnosis: R knee pain Assessment: Patient is a 58 year old R handed male who presents with s/s consistent with R knee pain. He does not work and lives a fairly sedentary life at this time. Patient past medical history includes L eye blindness, HTN, and DM. Current impairments include pain, balance, ROM, strength, activity tolerance and functional mobility. Functional limitations include decreased ability to stand, walk, perform chores, yardwork and negotiate stairs. Patient is motivated with good rehab potential. Skilled PT will address impairments and functional limitations in order to achieve goals. Frequency and Duration: The patient will be seen 2x/week for 5 weeks Short Term Goals: I with HEP - 2 weeks AROM 0-120 - 3 weeks Proper gait mechanics - SPC - 3 weeks Photo Printer Goals: LEFS 48/80 - 5 weeks Strength 4+/5 grossly - 5 weeks Min tightness of gastroc, 90/90 HS < 26 - 5 weeks Max pain with daily routine 2/10 - 5 weeks Treatment Plan: Modalities to reduce pain, spasms and effusion. Manual therapy to restore motion and function. Therapeutic exercise to improve strength and flexibility. Neuromuscular re-education for posture and balance. Therapeutic activities to return to functional activities of daily living. Electronically signed by: Magno Maciel, PT Please sign and return to therapist. Thank you for your referral.
--- NOTE | 2024-11-19 13:45 | MHC.PT.DC ---
[facility] [place] [facility] [place] [facility] [place] [facility] [address] Keyonna De Anda [address] [phone] F: [phone] F: [phone] F: [phone] F: [phone] Physical Therapy Discharge Report Diagnosis: R knee pain Date of Surgery: Date of Evaluation: 06/17/24 Date of Discharge: 08/12/24 Treatments to Date: 6 Cancellations to Date: No Shows to Date: Discharge Status: Improved Function Independent with HEP Discharge Summary: 08/10/24: pt progressed well over the course of skilled PT. he had reduced pain, improved ROM and strength. He is I with HEP. He met or progressed towards goals. He is appropriate to d/c to HEP at this time. 08/03/24: pt progressing well with skilled PT. less s/s overall with increased difficulty within program. 07/28/24: pt challenged with above program. progressing functionally overall and compliant with HEP. able to walk 30 min at this time. 06/29/24: pt progressing well so far. noting less pain with daily routine. we progressed HEP and issued bands. 06/22/24:pt progressed with skilled PT for strength, ROM. no adverse reactions. we will progress HEP Nv. compliance expressed. Patient is a 58 year old R handed male who presents with s/s consistent with R knee pain. He does not work and lives a fairly sedentary life at this time. Patient past medical history includes L eye blindness, HTN, and DM. Current impairments include pain, balance, ROM, strength, activity tolerance and functional mobility. Functional limitations include decreased ability to stand, walk, perform chores, yardwork and negotiate stairs. Patient is motivated with good rehab potential. Skilled PT will address impairments and functional limitations in order to achieve goals. Electronically signed by: Magno Maciel, PT Please sign and return to therapist. Thank you for your referral.
== END 2024-11-19 13:46 | disposition home or self-care (01) ==
LOC: HO.PTCHIC 07:00
PROVIDERS: PCP Internal Medicine; Visit Provider Internal Medicine
DX: M25.561 Pain in right knee (principal)
CPT/HCPCS: 97110; 97162

== ENCOUNTER 2024-08-10 08:17 | Outpatient (AMB) | payer MEDICARE, MEDICAID, SELFPAY ==
--- NOTE | 2024-08-10 08:24 | A.OFFPC_ITS ---
Vital Signs 08/10/24 08:29 Height 5 ft 7 in Weight 170 lb BMI 26.6 BP 142/82 H Blood Pressure Location Rt brachial Position Sitting Pulse 70 Pulse Source Pulse Oximeter Pulse Oximetry (%) 97 Oxygen Delivery Method Room Air Intake Visit Reasons: Anxiety Intake Note: Pt is here today as a transfer patient from [facility] to [facility] anxiety and DM Accompanied by: [id number]-zr-sqf (Ana Maria) Allergies No Known Allergies Allergy (Verified 08/16/24 06:11) Medication List - Last Reconciled 08/10/24 by Allyn Albarran MD amlodipine 5 mg PO DAILY blood pressure monitor BP cuff and monitor blood sugar diagnostic ([employer] Ultra Test strips) Check fasting blood sugar once daily before a meal blood-glucose meter ([employer] Ultra2 Meter) As directed cane As directed cane Use As directed NS fluticasone propionate 50 mcg/actuation 1 spray intranasal DAILY lancets ([employer] Delica Safety Lancet) Check blood sugar once a day before meals losartan 100 mg PO DAILY metformin ER 500 mg PO DAILY metoprolol tartrate 25 mg PO BID Tobacco use date assessed: 08/10/24 Dental Screening Dental Screen Date: 08/10/24 Did you have a dental visit in the last 12 months?: Yes Did you have a dental problem in the last 6 months where you did not have access to dental care?: Yes Was dental information given to patient?: Patient has dentist HPI Anxiety HPI Details 59-year-old male, new to [place], with past m edical history significant for traumatic blindness of left eye, diabetes mellitus, hypertension, and anxiety disorder. Patient states that he has been taking his medicines as directed, , has been feeling well with no complaints at present time. He does state having occasional episodes of anxiety, especially when he goes out in public., [facility] Medical History (Updated 08/16/24 @ 06:23 by Allyn Albarran MD) Environmental and seasonal allergies Social anxiety disorder Essential hypertension Type 2 diabetes mellitus without complication, without long-term current use of insulin Traumatic blindness of left eye Surgical History No pertinent past surgical history Family History Mother Diabetes type 2, controlled Mental health disorder Brother Diabetes type 2, controlled Father Mental health disorder Sister Mental health disorder Social History Housing: Apartment Patient Tobacco Use Status: Never used Tobacco e-Cigarette/Vaping Use: Never Used service: No Current occupational status: disabled Current occupational exposures/hazards: No Cognitive needs: Yes Hearing needs: No Vision needs: Yes Questionnaire Thrive Questionnaire Date Thrive assessed: 04/27/24 I am a: Patient What is your living situation today?: I have a steady place to live Within the past 12 months, did the food you bought not last and you didn't have the money to get more?: Never true Within the past 12 months, did you worry whether your food would run out before you got money to buy more?: Never true Do you have trouble paying for medicines?: No Do you have trouble getting transportation to medical appointments?: No Do you have trouble paying your heating and electricity bill?: No Do you have trouble taking care of your child, family member or friend?: No Do you have trouble with day-to-day activities such as bathing, preparing meals, shopping, managing finances, etc.?: Yes Are you currently unemployed and looking for a job?: No Are you interested in more education?: No Currently or been in a relationship where the following occur: I choose not to answer THRIVE Score: 0 ELLYN-7 AMB Questionnaire ELLYN-7 Date ELLYN - 7 assessed: 08/10/24 Feeling nervous, anxious, or on edge: 1 = Several days Not being able to stop or control worryin = Several days Worrying too much about different things: 1 = Several days Trouble relaxin = Not at all Being so restless that it is hard to sit still: 1 = Several days Becoming easily annoyed or irritable: 1 = Several days Feeling afraid as if something awful might happen: 0 = Not at all Total ELLYN-7 score (0-4 normal; 5-9 mild; 10-14 moderate; 15-21 severe): 5 Source: Developed by Drs. Sylvester Jung, Molly Whitman, Hema fraser, with an educational wilfredo from [employer]. ELLYN-7 Assessment Billing ELLYN-7 Assessment Tool: ELLYN-7 Assessment 25217 Review of Systems Const Denies fatigue, Denies frequent falls, Denies poor appetite, Denies snoring, Denies stops breathing during sleep and Denies weakness Eyes Details: Traumatic blindness left eye and blurry vision on right[facility] Denies dizziness Card Denies chest pain, Denies claudication, Denies leg edema, Denies lightheadedness, Denies palpitations, Denies dyspnea, Denies dyspnea on exertion and Denies orthopnea Resp Denies cough, Denies excessive phlegm production, Denies dyspnea, Denies dyspnea on exertion, Denies snoring and Denies wheezing GI Denies abdominal pain, Denies hematochezia, Denies change in bowel habits, Denies nausea and Denies vomiting Denies dysuria and Denies urinary frequency Musc Denies arthralgias, Denies muscle weakness and Denies numbness Skin/Breast Denies rash Neuro Denies Abnormal speech present, Denies dizziness, Denies frequent falls, Denies memory loss, Denies numbness and Denies weakness Psych Denies depression and Denies memory loss Endo Denies fatigue and Denies palpitations Yohan/Lymph Reports no additional complaints Aller/Immun Reports seasonal rhinorrhea and Denies wheezing Physical exam (Primary Care) Vital Signs: Last Vital Signs Pulse 70 08/10/24 08:29 BP 142/82 H 08/10/24 08:29 Pulse Ox 97 08/10/24 08:29 Oxygen Delivery Method Room Air 08/10/24 08:29 BMI result Body Mass Index 26.6 Tobacco/Smoking Status: Tobacco use Status Tobacco use date assessed 08/10/24 08/10/24 08:37 Patient Tobacco Use Status Never used Tobacco 08/10/24 08:24 e-Cigarette/Vaping Use Never Used 08/10/24 08:24 Thrive Assessment: Date of Thrive Assessment Date Thrive assessed 04/27/24 08/10/24 08:24 Currently or been in a relationship where the following occur: I choose not to answer Const Other: Blind in left eye, walks with a cane, has skip locator accompanying him today General: comfortable, no acute distress and alert Nutritional Appearance: average body habitus Orientation/consciousness: patient oriented x3 HENMT Ears: external ears normal, TM's normal bilaterally and EAC's normal General nose exam: Normal external nose present and No nasal discharge present Mouth: Normal oral and palatal mucosa present, oropharynx normal and moist muc ous membranes Eyes Other: Corneal opacity left eye Neck Neck: Yes full ROM, Yes no lymphadenopathy and Yes supple Resp Effort & Inspection: normal respiratory effort and able to speak in complete sentences Auscultation: clear to auscultation bilaterally Cardio Rate: regular rate Rhythm: regular rhythm Heart sounds: S1 normal heart sound present and S2 normal heart sound present GI Palpation (GI): Soft to palpation, nontender and no masses Auscultation: normal bowel sounds Back/Spine/Pelvis Back: No back tenderness Skin General skin exam: no rashes or lesions noted Neuro General: patient oriented x3, gait normal, tone normal, moves all extremities, Normal light touch and pain sensation and no focal motor deficits Cranial nerves: Yes CN's II-XII intact bilaterally Cognition (Neuro): normal cognition Speech: No Abnormal speech present Extrem General: Yes full ROM, Yes no joint enlargement, Yes no clubbing, cyanosis or edema and Yes no calf tenderness Psych Appearance: grossly normal and well kempt Mental Status: mental status grossly normal Speech and movement: Normal speech and movement present Affect: normal affect Attitude: cooperative Thought process: Normal thought process present Thought content: Normal thought content present Office Procedures Flu Questionnaire Does the patient have a severe egg allergy?: No Does the patient have severe life threatening allergies?: No Does the patient have a fever or illness today?: No Has the patient ever had Guillain-[place] Syndrome?: No Has the patient ever had any past reaction to a flu shot?: No Results AMB Hemoglobin A1c AMB Hemoglobin A1c 5.8 % Last Edit by Janene Arrieta CMA on 08/10/24 08:44 Immunizations Fluarix Triv [id number] (PF) 45 mcg (15 mcg x 3)/0.5 mL IM syringe Performing Provider: Allyn Albarran MD Performing Location: [facility] Administered by: Janene Arrieta CMA on 08/10/24 09:23 Dose Route Admin Location Dispensed Lot Number Expiration Date COC Sales And Service Representative 0.5 mL IM Left Deltoid 0.5 mL [id number] 04/12/25 [id number] P2i VIS Given Date VIS Provided VIS Publication Date 08/10/24 Single Vaccine 21 Eligibility Eligibility Date Funding Source Not [facility] Eligible 08/10/24 Private Results Reviewed Results Reviewed: Laboratory Last Values Hgb A1c (Clinic) 5.8 % (4.0-6.0) 08/10/24 08:43 Name: Faheem Weber Age/Sex: 59/M : 1965 Unit#: [id number] Attend Dr: Cristopher Garces MD Re08/06/24 Status: DEP REF Location: .LAB Disch: SPEC : [id number] ALISIA: 08/06/24 STATUS: COMP REQ : [id number] RECD: 08/06/[address]: Cristopher Garces MD COMP: 08/06/24 ENTERED: 08/06/[address]: Allyn Albarran MD ORDERED: BMP Test Result Flag Reference Sodium 139 135-145 mmol/L Potassium 5.1 3.3-5.1 mmol/L CL 104 96-108 mmol/L CO2 28 22-29 mmol/L Gap 12 12-20 BUN 17 H 9-16 mg/dL Creat 1.07 0.5-1.4 mg/dL EGFR > 60 NOTE: For -[place] individuals, multiply the result by 1.210. Chronic Kidney Disease: Estimated GFR < 60 mL/min /1.73m2 Severe Kidney Disease: Estimated GFR < 15 mL/min/1.73m2 Glucose, Random 133 H 60-115 mg/dL CA 10.3 # H 8.4-10.2 mg/dL Coding Level of Care Code Est Pt Level 4 (16957) Complex EM visit Add On G2211 Diagnoses Diabetes type 2, controlled E11.9 Diabetes mellitus long term care pharmacist insulin use: without long term care pharmacist use Laterality: unspecified laterality Proliferative retinopathy type: unspecified Type 2 diabetes mellitus without complication, without long-term current use of insulin E11.9 Essential hypertension I10 Social anxiety disorder F40.10 Colon cancer screening Z12.11 Environmental and seasonal allergies J30.89 Additional Codes ELLYN-7 Assessment Billing - ELLYN-7 Assessment Tool: ELLYN-7 Assessment 84013 ([id number]) Assessment & Plan Assessment & Plan (1) Diabetes type 2, controlled: Code(s): E11.9 - Type 2 diabetes mellitus without complications Category: Medical Qualifiers: Diabetes mellitus long term care pharmacist insulin use: without long term care pharmacist use Laterality: unspecified laterality Proliferative retinopathy type: unspecified Plan: Hemoglobin A1c today is at 5 point 8% (2) Type 2 diabetes mellitus without complication, without long-term current use of insulin: Code(s): E11.9 - Type 2 diabetes mellitus without complications Category: Medical Plan: Recent lab results reviewed with patient, with hemoglobin A1c at goal at 5.8%. Continue with metformin ER 500 mg once a day. Reinforced diabetic diet and regular exercise with patient. Counseled regarding importance of yearly diabetes retinopathy screening. Patient advised to inspect feet daily, for any signs of injury, callus or infection. Compliance with diet and regular exercise again stressed. Blood pressure goal is less than 130/80, goal LDL is less than 100 and goal hemoglobin A1c is less than 7% follow-up appointment made in-3--months, after fasting labs done. Referred to podiatry for his diabetes foot exam. Flu vaccine given today, reminded to get his COVID booster (3) Essential hypertension: Code(s): I10 - Essential (primary) hypertension Category: Medical Plan: Blood pressure goal is less than 130/80. Has appointment with nephrology today, will continue in the meantime on amlodipine metoprolol and losartan. Reinforced importance of following a low sodium diet, getting regular exercise, and lowering stress levels. (4) Social anxiety disorder: Code(s): F40.10 - Social phobia, unspecified Category: Medical Plan: Prescription sent for hydroxyzine HCl 10 mg per tablet to take 1 tablet once or twice a day as needed only for acute anxiety attacks. Patient cautioned that medication may make him drowsy. (5) Colon cancer screening: Code(s): Z12.11 - Encounter for screening for malignant neoplasm of colon Plan: Cologuard test ordered, explaine to patient ho to do test, advised that if test comes back positive he will need to be referred for diagnostic colonoscopy (6) Environmental and seasonal allergies: Code(s): J30.89 - Other allergic rhinitis Category: Medical Plan: Prescription sent for loratadine 10 mg per tablet taken once a day as needed for nasal congestion runny nose and postnasal drainage Orders: Orders Alanine Aminotransferase 10/24/24 E11.9 - Type 2 diabetes mellitus without complications, I10 - Essential (primary) hypertension Aspartate Amino Transferase 10/24/24 E11.9 - Type 2 diabetes mellitus without complications, I10 - Essential (primary) hypertension Vitamin D 25-OH Total 10/24/24 E11.9 - Type 2 diabetes mellitus without complications, I10 - Essential (primary) hypertension PSA,Total (Free>4and<10) 10/24/24 E11.9 - Type 2 diabetes mellitus without complications, I10 - Essential (primary) hypertension, Z12.5 - Encounter for screening for malignant neoplasm of prostate AMB Hemoglobin A1c 08/10/24 E11.9 - Type 2 diabetes mellitus without complications Lipid Panel 08/10/24 E11.9 - Type 2 diabetes mellitus without complications, I10 - Essential (primary) hypertension Influenza [id number] Immunization 08/10/24 E11.9 - Type 2 diabetes mellitus without complications Hemoglobin A1c 10/24/24 E11.9 - Type 2 diabetes mellitus without complications, I10 - Essential (primary) hypertension Microalbumin, Random (w Creat) 10/24/24 E11.9 - Type 2 diabetes mellitus without complications, I10 - Essential (primary) hypertension Lipid Panel 10/24/24 E11.9 - Type 2 diabetes mellitus without complications, I10 - Essential (primary) hypertension Referrals Cologuard Test Z12.11 - Encounter for screening for malignant neoplasm of colon, Z12.12 - Encounter for screening for malignant neoplasm of rectum Podiatry Referral E11.9 - Type 2 diabetes mellitus without complications Medications: New hydroxyzine HCl 10 mg PO BID PRN 20 tabs 0RF itching loratadine 10 mg PO DAILY 30 tabs 4RF allergy / postnasal drainage Refilled metformin ER 500 mg PO DAILY 90 tabs 2RF blood sugar diagnostic ([employer] Ultra Test strips) Check fasting blood sugar once daily before a meal 100 ea 1RF E11.9 - Type 2 diabetes mellitus without complications blood-glucose meter ([employer] Ultra2 Meter) As directed 1 ea 0RF lancets ([employer] Delica Safety Lancet) Check blood sugar once a day before meals 100 ea 1RF E11.9 - Type 2 diabetes mellitus without complications amlodipine 5 mg PO DAILY 90 tabs 1RF losartan 100 mg PO DAILY 90 tabs 1RF
[2024-08-10 08:29] VITALS: BP 142/82; PULSE 70; O2SAT 97; BMI 26.6
== END 2024-08-10 09:22 | disposition home or self-care (01) ==
PROVIDERS: PCP Internal Medicine; Visit Provider Internal Medicine
DX: E11.9 Type 2 diabetes mellitus without complications (principal); I10 Essential (primary) hypertension; F40.10 Social phobia, unspecified; Z12.11 Encounter for screening for malignant neoplasm of colon; J30.89 Other allergic rhinitis

== ENCOUNTER → 2024-08-10 08:17 | Outpatient (BNVA) | payer MEDICARE, MEDICAID, SELFPAY | PROVIDERS: PCP Internal Medicine; Visit Provider Internal Medicine | DX: Z23 Encounter for immunization (principal); I10 Essential (primary) hypertension; E11.9 Type 2 diabetes mellitus without complications; F40.10 Social phobia, unspecified; J30.89 Other allergic rhinitis | CPT/HCPCS: 83036; 90471; 90656; 96127; 99212 ==

== ENCOUNTER 2024-08-10 13:46 | Outpatient (AMB) | payer MEDICARE, MEDICAID, SELFPAY ==
--- NOTE | 2024-08-10 13:46 | HO.NEPHOV ---
Vital Signs 08/10/24 13:47 08/10/24 13:57 Height 5 ft 7 in Weight 170 lb BMI 26.6 BP 154/90 H 136/70 Blood Pressure Location Lt brachial Lt brachial Position Sitting Sitting Pulse 102 H Pulse Source Pulse Oximeter Pulse Oximetry (%) 97 Oxygen Delivery Method Room Air Intake Visit Reasons: 6 wk fu w/ labs/ conf Manager Data Warehousing Required: No Manager Data Warehousing Services: Manager Data Warehousing Offered & Declined (Patient brought Interpretor) Accompanied by: Daughter in law Allergies No Known Allergies Allergy (Verified 08/10/24 13:49) HPI Comments Details: 57-year-old man with a history of hypertension has been referred for evaluation of hypertension. COUNTS INCLUDE 234 BEDS AT THE [facility] Medical History (Updated 08/10/24 @ 13:55 by Cristopher Garces MD) Social anxiety disorder Essential hypertension Type 2 diabetes mellitus without complication, without long-term current use of insulin Traumatic blindness of left eye Surgical History No pertinent past surgical history Family History Mother Diabetes type 2, controlled Mental health disorder Brother Diabetes type 2, controlled Father Mental health disorder Sister Mental health disorder Social History Housing: Apartment Patient Tobacco Use Status: Never used Tobacco e-Cigarette/Vaping Use: Never Used service: No Current occupational status: disabled Current occupational exposures/hazards: No Cognitive needs: Yes Hearing needs: No Vision needs: Yes Physical Exam Vital Signs: Last Vital Signs Pulse 102 H 08/10/24 13:47 BP 154/90 H 08/10/24 13:47 Pulse Ox 97 08/10/24 13:47 Oxygen Delivery Method Room Air 08/10/24 13:47 BMI result Body Mass Index 26.6 Awake. Comfortable. Neck is supple. Mucosa moist. Lungs air entry equal Heart S1-S2 heard no gallop. Abdomen soft. Extremities no edema. No involuntary movements. No myoclonus. Results AMB Hemoglobin A1c AMB Hemoglobin A1c 5.8 % Last Edit by Janene Arrieta CMA on 08/10/24 08:44 Results Reviewed Nephrology Results: Sodium 139 mmol/L (135-145) 10/24/24 Potassium 5.1 mmol/L (3.3-5.1) 08/06/24 Chloride 104 mmol/L (96-108) 08/06/24 Carbon Dioxide 28 mmol/L (22-29) 08/06/24 BUN 17 mg/dL (9-16) H 08/06/24 Creatinine 1.07 mg/dL (0.5-1.4) 08/06/24 Calcium 10.3 mg/dL (8.4-10.2) H 08/06/24 Urine Creatinine 72.90 mg/dL 24 Assessment & Plan Assessment & Plan (1) Hypertension: Comment: Patient utilizing metoprolol tartrate 25 mg p.o. b.i.d. in addition to losartan 100 mg p.o. daily. and 5 mg amlodipine Code(s): I10 - Essential (primary) hypertension Category: Medical Qualifiers: Hypertension type: unspecified Qualified Code(s): I10 - Essential (primary) hypertension Plan Pleasant 49-year-old man with hypertension. Today blood pressure seems to be in the normal range. In the past blood pressure has been significantly elevated. He probably has underlying essential hypertension. Secondary causes seem unlikely. Renal function appears stable. No significant proteinuria by dipstick. urine protein creatinine ratio normal Goal is to maintain blood pressure less than 130/80 Stay on low-sodium diet No changes were made to medication today. Further workup will be based on the outcome of the above baseline investigations. Coding Level of Care Code Est Pt Level 4 (73727) Diagnoses Hypertension, unspecified type I10 Hypertension type: unspecified
[2024-08-10 13:47] VITALS: BP 154/90; PULSE 102; O2SAT 97; BMI 26.6
[2024-08-10 13:57] VITALS: BP 136/70
== END 2024-08-10 14:04 | disposition home or self-care (01) ==
LOC: HO.HKA 13:46
PROVIDERS: PCP Nurse Practitioner Primary Care; Visit Provider Internal Medicine Hypertension Specialist
DX: I10 Essential (primary) hypertension (principal)
CPT/HCPCS: 99214

== ENCOUNTER → 2024-08-12 07:59 | Outpatient (REF) | payer MEDICARE, MEDICAID, SELFPAY ==
--- NOTE | 2024-08-12 08:01 | CA_ITS ---
Transthoracic Echocardiogram Patient (Last, First, Middle): Faheem Weber, Gender: Male Date of : 1965 Age: 59 Procedure Date: 08/12/2024 Procedure Type: Transthoracic Echocardiogram Location: OP Height: 177.8 cm Weight: 77.11 kg BSA: 1.95 m2 Heart Rate: bpm BP: 112 / 56 mmHg Rug Setter Velvet: Referring MD: Germán Abad MD Symptoms: R94.31 - Abnormal electrocardiogram [ECG] [EKG] Study Quality: Good ECG Rhythm: Sinus Conclusions: - The left ventricular systolic function is mildly decreased. The calculated ejection fraction is 50% by biplane method. - No obvious valvular pathology seen on this study. Findings Left Ventricle Normal left ventricular cavity size. There is normal left ventricular wall thickness. The left ventricular systolic function is mildly decreased. The calculated ejection fraction is 50% by biplane method. There is no evidence of regional wall motion abnormalities. Diastolic function is normal for age. Right Ventricle Normal right ventricular cavity size and systolic function. Atria Both atria are normal in size. Aortic Valve There is a normal trileaflet aortic valve. There is no aortic valve stenosis. There is no aortic valve regurgitation. Mitral Valve The mitral valve appears normal. There is no mitral valve regurgitation. There is no mitral valve stenosis. Pulmonic Valve The pulmonic valve is likely normal. Tricuspid Valve Normal tricuspid valve structure. There is trace tricuspid valve regurgitation. There is no evidence of pulmonary hypertension. Great Vessels The asc aorta is normal in size. Venous The inferior vena cava is normal in size and collapses greater than 50% with inspiration. Pericardium/Pleural There is a trivial pericardial effusion. Prior Study Comparison No prior study available for comparison. Recommendations, Care & Conclusions No obvious valvular pathology seen on this study. Measurements 2D Linear Measurements IVSd: 0.92 0.6-0.9/0.6-1.0 cm LVIDd: 4.87 3.9-5.3/4.2-5.9 cm LVIDd Index: 2.50 2.4-3.2/2.2-3.1 cm/m2 LVIDs: 3.03 2.0-3.6 cm LVPWd: 0.90 0.7-1.1 cm Ao Root: 3.50 2.1-3.5 cm LA Diam: 3.00 2.7-3.8/3.0-4.0 cm LAIDs Index: 1.54 1.5-2.3 cm/m2 LV Mass: 191.97 67-162/88-224 g LV Mass Index: 98.45 43-95/49-115 g/m2 LVOT Diam: 2.50 3.0+(-)1.3 cm 2D Systolic Function EF 4C: 48.90 >55% EF 2C: 51.20 >55% EF BiP: 49.60 >55% Mitral Valve MV Pk E: 0.58 MV PK A: 0.91 MV Decel Time: 104.00 E/A: 0.60 E'Lateral: 11.70 E'Medial: 6.96 E/E' Med: 8.30 E/E' Lat: 5.00 PHT: 31.00 MVA PHT: 7.10 Decel Dauphin: 5.57 Aortic Valve AoV Pk Florin: 1.52 AoV Mn Florin: 0.97 AoV VTI: 0.31 AoV Pk Grad: 9.00 Aov Mn Grad: 5.00 MENG Cont.VTI: 3.27 LVOT LVOT Pk Florin: 1.07 LVOT Mn Florin: 0.66 LVOT VTI: 0.21 LVOT Pk Grad: 5.00 LVOT Mn Grad: 2.00 LVOT Diam: 2.50 LVOT Area: 4.91 Diastolic Function MV Pk E: 0.58 MV Pk A: 0.91 E/A: 0.60 E'Medial: 6.96 E/E' Med: 8.30 E' Laterial: 11.70 E/E' Lat: 5.00 Right Ventricle TAPSE (mm): 30.00 TVS' Florin: 12.00 Tricuspid Valve TR Pk Florin: 2.09 TR Pk Grad: 17.00 RA Press: 3.00 RVSP: 20.00 Great Vessels Aorta Ao Root-2D: 3.50 2.0-3.7 cm Ao Asc: 3.50 2.1-3.4 cm Pulmonary Valve PV Pk Florin: 1.29 Peak PV Grad: 7.00 Updated in Other Vendor System with Status of Final Berlin Trejo MD electronically signed on 08/16/2024 10:39:39 AM with status of Final
== END ==
LOC: HO.CARD 07:59
PROVIDERS: PCP Internal Medicine; Visit Provider Internal Medicine Cardiovascular Disease
DX: R94.31 Abnormal electrocardiogram [ECG] [EKG] (principal)
CPT/HCPCS: 93306

== ENCOUNTER → 2024-08-12 08:01 | Outpatient (BNV) | payer MEDICARE, MEDICAID, SELFPAY | PROVIDERS: PCP Internal Medicine; Visit Provider Internal Medicine | DX: R94.31 Abnormal electrocardiogram [ECG] [EKG] (principal) | CPT/HCPCS: 93306 ==

== ENCOUNTER → 2024-09-24 08:06 | Outpatient (REF) | payer MEDICARE, MEDICAID, SELFPAY ==
--- NOTE | ~2024-09-24 | NM_ITS ---
Lexiscan Myocardial perfusion study Indication: Abnormal EKG to evaluate for myocardial ischemia Technique: The patient was brought in for a Lexiscan perfusion study on 09/24/2024 and was injected 0.4 mg of Lexiscan intravenously. Within a minute of this injection 30 mCi of sestamibi was given intravenously. Images were obtained using the SPECT gamma camera interlaced with the gating device. Images were obtained in supine position. Resting perfusion study was performed on 09/25/2024. Patient was administered 30 mCi of sestamibi intravenously at rest. Images were then obtained in supine position. Images obtained without without CT attenuation. Total DLP 120 mGy-cm Images were processed with the software and compared side to side in short axis, horizontal long axis and vertical long axis views. Findings: The stress perfusion study showed nonattenuated images show normal uptake of radiotracer in all segments of the LV myocardium. Attenuation corrected images show mild thinning of the apex of the LV myocardium. The gated study shows normal LV systolic function with calculated LVEF of 62%. LV cavity is normal in size. The gated study shows normal systolic wall thickening and contraction of segments. Resting study shows no change in perfusion pattern compared to stress perfusion study. Gating at rest reveals normal systolic wall motion with ejection fraction at 55%. The findings are consistent with normal myocardial perfusion. NM/NM kendra perf SPECT rest & str Impression: 1. Myocardial perfusion imaging study shows normal myocardial perfusion 2. Gated LVEF is 62% 3. Transient ischemic dilatation not present Nondiagnostic changes on EKG. Electronically signed by: Germán Abad MD 09/26/2024 03:45 PM [facility]
--- NOTE | 2024-09-24 08:11 | CA_ITS ---
Acquisition Time: 2024-09-24 08:20:46 Total Exercise Time: 00:02:00 Test Indications: abnormal ekg Medications: Protocol: LEXISCAN Max HR: 123 BPM 76% of Pred: 160 BPM Max BP: 164/082 mmHG Max Work Load: 1.0 METS Pharamacologic stress test with Lexiscan while pt kicks his legs in chair, with reports of feeling nauseous, no chest discomfort, without any arrythmias, with normotensive response to injection. Nondiagnostic EKG for ischemia. In recovery, pt was treated with IVP Aminophylline 75mg to reverse Lexiscan, after which pt feeling back to baseline. Nuclear images pending. Test reviewed with Dr. Abad. Test performed by Kirti Flor NP and Zhen Loaiza NP. Referred By: Germán Abad Overread By: KIRTI FLOR
== END ==
LOC: HO.CARD 08:06
PROVIDERS: PCP Internal Medicine; Visit Provider Internal Medicine Cardiovascular Disease
DX: R94.31 Abnormal electrocardiogram [ECG] [EKG] (principal)
CPT/HCPCS: 78452; 93017; A9500; J0280; J2785

== ENCOUNTER → 2024-09-24 08:11 | Outpatient (BNV) | payer MEDICARE, MEDICAID, SELFPAY | PROVIDERS: PCP Internal Medicine; Visit Provider Nurse Practitioner Family | DX: R94.31 Abnormal electrocardiogram [ECG] [EKG] (principal) | CPT/HCPCS: 78452; 93016; 93018 ==

== ENCOUNTER 2024-12-14 12:36 | Outpatient (REF) | payer MEDICARE, MEDICAID, SELFPAY ==
[2024-12-14 16:28] LABS: Estimated Average Glucose 131 mg/dL; Hemoglobin A1C 173.8949 umol/L; Hemoglobin A1c % 6.2 % (<6.0); Total Hemoglobin (HGBA1C) 3968.7936 umol/L
[2024-12-14 16:41] LABS: Alanine Aminotransferase 20 U/L (0-40); Aspartate Amino Transferase 27 U/L (5-37); Cholesterol 195 mg/dL (<200); HDL Cholesterol 52 mg/dL (>40); LDL Cholesterol Calculated 123 mg/dL (<100); Triglycerides 101 mg/dL (<150)
[2024-12-14 16:56] LABS: Vitamin D 25-OH Total 75.4 ng/mL (>30)
[2024-12-14 17:14] LABS: Creatinine Urine 106.93 mg/dL; Microalbumin Urine < 5.0 mg/L
== END 2024-12-14 12:37 | disposition home or self-care (01) ==
LOC: HO.HMGCLDS 12:36
PROVIDERS: PCP Internal Medicine; Visit Provider Internal Medicine
DX: E11.9 Type 2 diabetes mellitus without complications (principal); I10 Essential (primary) hypertension; Z12.5 Encounter for screening for malignant neoplasm of prostate
CPT/HCPCS: 36415; 80061; 82043; 82306; 82570; 83036; 84153; 84450; 84460

== ENCOUNTER 2025-01-25 08:24 | Outpatient (AMB) | payer MEDICARE, MEDICAID, SELFPAY ==
[2025-01-25 08:41] VITALS: BP 144/80; PULSE 94; RESP 16; TEMP 36.6; O2SAT 97; BMI 27.6
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
== END 2025-01-25 10:00 | disposition home or self-care (01) ==
LOC: HO.HMCC 08:25
PROVIDERS: PCP Internal Medicine; Visit Provider Internal Medicine
DX: Z00.00 Encounter for general adult medical examination without abnormal findings (principal); E11.9 Type 2 diabetes mellitus without complications; E78.5 Hyperlipidemia, unspecified; J30.89 Other allergic rhinitis; S05.92XD Unspecified injury of left eye and orbit, subsequent encounter; I10 Essential (primary) hypertension; Z71.89 Other specified counseling

== ENCOUNTER → 2025-01-25 08:24 | Outpatient (BNVA) | payer MEDICARE, MEDICAID, SELFPAY | PROVIDERS: PCP Internal Medicine; Visit Provider Internal Medicine | DX: Z00.01 Encounter for general adult medical examination with abnormal findings (principal); E11.9 Type 2 diabetes mellitus without complications; I10 Essential (primary) hypertension; F41.9 Anxiety disorder, unspecified; E78.5 Hyperlipidemia, unspecified; J30.89 Other allergic rhinitis; S05.92XD Unspecified injury of left eye and orbit, subsequent encounter; X58.XXXD Exposure to other specified factors, subsequent encounter; Z71.89 Other specified counseling | CPT/HCPCS: 96127; 99396 ==

== ENCOUNTER 2025-01-26 09:33 | Outpatient (AMB) | payer MEDICARE, MEDICAID, SELFPAY ==
[2025-01-26 09:31] VITALS: BP 154/96; PULSE 86; O2SAT 99; BMI 27.2
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
== END 2025-01-26 09:45 | disposition home or self-care (01) ==
LOC: HO.HKA 09:33
PROVIDERS: PCP Internal Medicine; Visit Provider Internal Medicine Hypertension Specialist
DX: I10 Essential (primary) hypertension (principal); E11.9 Type 2 diabetes mellitus without complications
CPT/HCPCS: 99214

== ENCOUNTER → 2025-01-26 09:33 | Outpatient (BNVA) | payer MEDICARE, MEDICAID, SELFPAY | PROVIDERS: PCP Internal Medicine; Visit Provider Internal Medicine Hypertension Specialist | DX: I10 Essential (primary) hypertension (principal); E11.9 Type 2 diabetes mellitus without complications | CPT/HCPCS: 99212 ==

== ENCOUNTER 2025-05-25 09:10 | Outpatient (REF) | payer MEDICARE, MEDICAID, SELFPAY ==
--- NOTE | ~2025-05-25 | XR_ITS ---
EXAMINATION: XR CHEST 2 VIEWS HISTORY: R05.8 - Other specified cough COMPARISON: There are no prior studies available for comparison. FINDINGS: PA and lateral views of the chest are submitted. The lungs are expanded and clear. There is no pleural effusion, pneumothorax, or pulmonary vascular congestion. The heart is normal in size. The bones are intact. XR/XR chest 2V IMPRESSION: Clear lungs. Electronically signed by: Sylvester Maria MD 05/25/2025 10:51 AM EDT
== END 2025-05-25 09:11 | disposition home or self-care (01) ==
LOC: HO.HMGCX 09:10
PROVIDERS: PCP Internal Medicine; Visit Provider Internal Medicine
DX: R05.8 Other specified cough (principal); E78.5 Hyperlipidemia, unspecified; E11.9 Type 2 diabetes mellitus without complications; I10 Essential (primary) hypertension
CPT/HCPCS: 71046; 83036; 99212

== ENCOUNTER 2025-05-25 09:10 | Outpatient (AMB) | payer MEDICARE, MEDICAID, SELFPAY ==
[2025-05-25 09:33] VITALS: BP 130/85; PULSE 66; RESP 15; TEMP 36.7; O2SAT 99; BMI 27.9
--- NOTE | 2025-05-25 09:33 | A.OFFPC_ITS ---
Vital Signs 05/25/25 09:33 Height 5 ft 7 in Weight 178 lb BMI 27.9 BP 130/85 Blood Pressure Location Lt brachial Position Sitting Respiration 15 Pulse 66 Pulse Source Pulse Oximeter Temp 98.1 F Temp Source Oral Pulse Oximetry (%) 99 Oxygen Delivery Method Room Air Intake Visit Reasons: 4m follow up Intake Note: Pt is here today for his 4mo. f/u Allergies No Known Allergies Allergy (Verified 05/25/25 10:09) Medication List - Last Reconciled 05/25/25 by Allyn Albarran MD amlodipine 5 mg PO DAILY blood pressure monitor BP cuff and monitor blood sugar diagnostic ([employer] Ultra Test strips) Check fasting blood sugar once daily before a meal blood-glucose meter ([employer] Ultra2 Meter) As directed cane As directed cane Use As directed NS fluticasone propionate 50 mcg/actuation 1 spray intranasal DAILY hydroxyzine HCl 10 mg PO BID PRN lancets ([employer] Delica Safety Lancet) Check blood sugar once a day before meals loratadine 10 mg PO DAILY losartan 100 mg PO DAILY metformin ER 500 mg PO DAILY metoprolol tartrate 25 mg PO BID rosuvastatin 5 mg PO Q2D 3 months Tobacco use date assessed: 05/25/25 Dental Screening Dental Screen Date: 05/25/25 Did you have a dental visit in the last 12 months?: Yes Did you have a dental problem in the last 6 months where you did not have access to dental care?: No Was dental information given to patient?: Patient has dentist REPLACED BY [facility] Medical History Dyslipidemia Environmental and seasonal allergies Social anxiety disorder Essential hypertension Type 2 diabetes mellitus without complication, without long-term current use of insulin Traumatic blindness of left eye Surgical History No pertinent past surgical history Family History Mother Diabetes type 2, controlled Mental health disorder Brother Diabetes type 2, controlled Father Mental health disorder Sister Mental health disorder Social History Housing: Apartment Patient Tobacco Use Status: Never used Tobacco e-Cigarette/Vaping Use: Never Used service: No Current occupational status: disabled Current occupational exposures/hazards: No Cognitive needs: Yes Hearing needs: No Vision needs: Yes Questionnaire Thrive Questionnaire Date Thrive assessed: 01/25/25 I am a: Patient What is your living situation today?: I have a steady place to live Within the past 12 months, did the food you bought not last and you didn't have the money to get more?: Never true Within the past 12 months, did you worry whether your food would run out before you got money to buy more?: Never true Do you have trouble paying for medicines?: No Do you have trouble getting transportation to medical appointments?: No Do you have trouble paying your heating and electricity bill?: No Do you have trouble taking care of your child, family member or friend?: No Do you have trouble with day-to-day activities such as bathing, preparing meals, shopping, managing finances, etc.?: No Are you currently unemployed and looking for a job?: No Are you interested in more education?: No Please select the resources that you would like help with: None Currently or been in a relationship where the following occur: No concerns reported THRIVE Score: 0 AUDIT C Alcohol Use Questionnaire (AUDIT-C) 3. How often do you have six or more drinks on one occasion?: Never Total Score: 0 ELLYN-7 AMB Questionnaire ELLYN-7 Date ELLYN - 7 assessed: 01/25/25 Source: Developed by Drs. Sylvester Jung, Molly Whitman, Hema Haji and colleagues, with an educational wilfredo from [employer]. Physical exam (Primary Care) Vital Signs: Last Vital Signs Temp 98.1 F 05/25/25 09:33 Pulse 66 05/25/25 09:33 Resp 15 05/25/25 09:33 BP 140/90 H 05/25/25 09:33 Pulse Ox 99 05/25/25 09:33 Oxygen Delivery Method Room Air 05/25/25 09:33 BMI result Body Mass Index 27.9 Tobacco/Smoking Status: Tobacco use Status Tobacco use date assessed 05/25/25 05/25/25 09:35 Patient Tobacco Use Status Never used Tobacco 05/25/25 09:34 e-Cigarette/Vaping Use Never Used 05/25/25 09:34 Thrive Assessment: Date of Thrive Assessment Date Thrive assessed 01/25/25 05/25/25 09:34 Currently or been in a relationship where the following occur: No concerns reported Results AMB Hemoglobin A1c AMB Hemoglobin A1c 6.2 % Last Edit by Janene Arrieta CMA on 05/25/25 09:41 Results Reviewed Results Reviewed: Laboratory Last Values Hgb A1c (Clinic) 6.2 % (4.0-6.0) H 05/25/25 09:34 Coding Diagnoses Cough present for greater than 3 weeks R05.8 Assessment & Plan Assessment & Plan (1) Cough present for greater than 3 weeks: Code(s): R05.8 - Other specified cough Orders: Orders AMB Hemoglobin A1c Today E11.9 - Type 2 diabetes mellitus without complications XR chest 2V Today R05.8 - Other specified cough Medications: New cetirizine 10 mg PO BEDTIME 30 tabs 4RF Discontinued loratadine Discontinued Reason: Doctor's Order 10 mg PO DAILY 90 tabs 4RF for allergies
== END 2025-05-25 10:31 | disposition home or self-care (01) ==
LOC: HO.HMCC 09:10
PROVIDERS: PCP Internal Medicine; Visit Provider Internal Medicine
DX: E11.9 Type 2 diabetes mellitus without complications (principal)

== ENCOUNTER → 2025-05-25 10:37 | Outpatient (BNV) | payer MEDICARE, MEDICAID, SELFPAY | PROVIDERS: PCP Internal Medicine; Visit Provider Radiology Diagnostic Radiology | DX: R05.8 Other specified cough (principal) | CPT/HCPCS: 71046 ==

== ENCOUNTER 2025-05-26 06:22 | Outpatient (REF) | payer MEDICARE, MEDICAID, SELFPAY ==
[2025-05-26 11:23] LABS: Alanine Aminotransferase 18 U/L (0-40); Anion Gap 10 (12-20); Aspartate Amino Transferase 28 U/L (5-37); Blood Urea Nitrogen 18 mg/dL (9-16); Calcium 9.3 mg/dL (8.4-10.2); Carbon Dioxide 29 mmol/L (22-29); Chloride 106 mmol/L (96-108); Cholesterol 143 mg/dL (<200); Estimated Glomerular Filt Rate > 60; HDL Cholesterol 43 mg/dL (>40); Potassium 4.2 mmol/L (3.3-5.1); Sodium 141 mmol/L (135-145); Triglycerides 100 mg/dL (<150)
== END 2025-05-26 06:23 | disposition home or self-care (01) ==
LOC: HO.HMGCLDS 06:22
PROVIDERS: PCP Internal Medicine; Visit Provider Internal Medicine
DX: Z00.01 Encounter for general adult medical examination with abnormal findings (principal); S05.92XA Unspecified injury of left eye and orbit, initial encounter; E78.5 Hyperlipidemia, unspecified; J30.89 Other allergic rhinitis; I10 Essential (primary) hypertension; E11.9 Type 2 diabetes mellitus without complications; Z71.89 Other specified counseling
CPT/HCPCS: 36415; 80048; 80061; 84450; 84460

== ENCOUNTER 2025-07-15 09:18 | Outpatient (REF) | payer MEDICARE, MEDICAID, SELFPAY ==
[2025-07-15 11:04] LABS: Anion Gap 11 (12-20); Blood Urea Nitrogen 15 mg/dL (9-16); Calcium 10.1 mg/dL (8.4-10.2); Carbon Dioxide 32 mmol/L (22-29); Chloride 103 mmol/L (96-108); Estimated Glomerular Filt Rate > 60; Potassium 5.0 mmol/L (3.3-5.1); Sodium 141 mmol/L (135-145)
== END 2025-07-15 09:19 | disposition home or self-care (01) ==
LOC: HO.LAB 09:18
PROVIDERS: PCP Internal Medicine; Visit Provider Internal Medicine Hypertension Specialist
DX: E11.9 Type 2 diabetes mellitus without complications (principal)
CPT/HCPCS: 36415; 80048

== ENCOUNTER 2025-07-20 09:49 | Outpatient (AMB) | payer MEDICARE, MEDICAID, SELFPAY ==
[2025-07-20 09:50] VITALS: BP 122/82; PULSE 76; O2SAT 96
--- NOTE | 2025-07-20 09:50 | HO.NEPHOV_ITS ---
Vital Signs 07/20/25 09:50 Height 5 ft 7 in BP 122/82 Blood Pressure Location Rt brachial Position Sitting Pulse 76 Pulse Source Pulse Oximeter Pulse Oximetry (%) 96 Oxygen Delivery Method Room Air Intake Visit Reasons: 6 MO FU Contract Project Manager Required: No Contract Project Manager Services: Contract Project Manager Offered & Declined (INDEPENDENT MARKETING CONSULTANT will translate) Accompanied by: INDEPENDENT MARKETING CONSULTANT Allergies Seasonal Allergies Allergy (Unknown, Verified 07/20/25 09:52) Unknown Medication List - Last Reconciled 07/20/25 by Cristopher Garces MD amlodipine 5 mg PO DAILY blood pressure monitor BP cuff and monitor blood sugar diagnostic ([employer] Ultra Test strips) Check fasting blood sugar once daily before a meal blood-glucose meter ([email or web address] Ultra2 Meter) As directed cane As directed cane Use As directed NS cetirizine 10 mg PO BEDTIME fluticasone propionate 50 mcg/actuation 1 spray intranasal DAILY hydroxyzine HCl 10 mg PO BID PRN lancets ([employer] Delica Safety Lancet) Check blood sugar once a day before meals losartan 100 mg PO DAILY metformin ER 500 mg PO DAILY metoprolol tartrate 25 mg PO BID rosuvastatin 5 mg PO Q2D 3 months HPI Comments Details: 57-year-old man with a history of hypertension has been referred for evaluation of hypertension. Accompanied by daughter HOme BP has been good Gained few pounds 07/20/25 - The patient is a 60-year-old male presenting for follow-up regarding hypertension management. - Hypertension: Controlled with medication, no side effects reported. - Blood pressure stable in clinic and at home. Present without leg swelling or breathing issues. [facility] Medical History Dyslipidemia Environmental and seasonal allergies Social anxiety disorder Essential hypertension Type 2 diabetes mellitus without complication, without long-term current use of insulin Traumatic blindness of left eye Surgical History No pertinent past surgical history Family History Mother Diabetes type 2, controlled Mental health disorder Brother Diabetes type 2, controlled Father Mental health disorder Sister Mental health disorder Social History Housing: Apartment Patient Tobacco Use Status: Never used Tobacco e-Cigarette/Vaping Use: Never Used service: No Current occupational status: disabled Current occupational exposures/hazards: No Cognitive needs: Yes Hearing needs: No Vision needs: Yes Physical Exam Vital Signs: Last Vital Signs Pulse 76 07/20/25 09:50 BP 122/82 07/20/25 09:50 Pulse Ox 96 07/20/25 09:50 Oxygen Delivery Method Room Air 07/20/25 09:50 Awake. Comfortable. Neck is supple. Mucosa moist. Lungs air entry equal Heart S1-S2 heard no gallop. Abdomen soft. Extremities no edema. No involuntary movements. No myoclonus. Results Reviewed Nephrology Results: Sodium, (135-145) 141 mmol/L 07/15/25 Potassium, (3.3-5.1) 5.0 mmol/L 07/15/25 Chloride, (96-108) 103 mmol/L 07/15/25 Carbon Dioxide, (22-29) 32 mmol/L H 07/15/25 BUN, (9-16) 15 mg/dL 07/15/25 Creatinine, (0.5-1.4) 1.08 mg/dL 07/15/25 Calcium, (8.4-10.2) 10.1 mg/dL Δ 07/15/25 Urine Creatinine 106.93 mg/dL 12/14/24 Assessment & Plan Assessment & Plan (1) Hypertension: Code(s): I10 - Essential (primary) hypertension Category: Medical Qualifiers: Hypertension type: unspecified Qualified Code(s): I10 - Essential (primary) hypertension (2) Type 2 diabetes mellitus without complication, without long-term current use of insulin: Code(s): E11.9 - Type 2 diabetes mellitus without complications Category: Medical Plan Pleasant 60-year-old man with hypertension. BP well controlled Home BP is good per daughter . He probably has underlying essential hypertension. Secondary causes are unlikely. Renal function appears stable. No significant proteinuria by dipstick. urine protein creatinine ratio normal Goal is to maintain blood pressure less than 130/80 Stay on low-sodium diet No changes were made to medication today. Orders: Orders Blood Urea Nitrogen 6 Months I10 - Essential (primary) hypertension, N18.4 - Chronic kidney disease, stage 4 (severe) Total Protein Urine Random 6 Months I10 - Essential (primary) hypertension Creatinine Urine 6 Months I10 - Essential (primary) hypertension Coding Level of Care Code Est Pt Level 4 (52732) Diagnoses Hypertension, unspecified type I10 Hypertension type: unspecified Type 2 diabetes mellitus without complication, without long-term current use of insulin E11.9
== END 2025-07-20 10:01 | disposition home or self-care (01) ==
LOC: HO.HKA 09:49
PROVIDERS: PCP Internal Medicine; Visit Provider Internal Medicine Hypertension Specialist
DX: I10 Essential (primary) hypertension (principal); E11.9 Type 2 diabetes mellitus without complications
CPT/HCPCS: 99214

== ENCOUNTER → 2025-07-20 09:49 | Outpatient (BNVA) | payer MEDICARE, MEDICAID, SELFPAY | PROVIDERS: PCP Internal Medicine; Visit Provider Internal Medicine Hypertension Specialist | DX: I10 Essential (primary) hypertension (principal); E11.9 Type 2 diabetes mellitus without complications; Z79.84 Long term (current) use of oral hypoglycemic drugs; E78.5 Hyperlipidemia, unspecified | CPT/HCPCS: 99212 ==

== ENCOUNTER 2025-09-18 06:42 | Outpatient (REF) | payer OTHER, SELFPAY ==
[2025-09-18 12:04] LABS: Alanine Aminotransferase 23 U/L (0-40); Anion Gap 10 (12-20); Aspartate Amino Transferase 32 U/L (5-37); Blood Urea Nitrogen 20 mg/dL (9-16); Calcium 9.8 mg/dL (8.4-10.2); Carbon Dioxide 27 mmol/L (22-29); Chloride 107 mmol/L (96-108); Cholesterol 151 mg/dL (<200); Estimated Glomerular Filt Rate > 60; HDL Cholesterol 50 mg/dL (>40); Potassium 4.4 mmol/L (3.3-5.1); Sodium 140 mmol/L (135-145); Triglycerides 95 mg/dL (<150)
== END 2025-09-18 06:43 | disposition home or self-care (01) ==
LOC: HO.HMGCLDS 06:42
PROVIDERS: PCP Internal Medicine; Visit Provider Internal Medicine
DX: I10 Essential (primary) hypertension (principal); E78.5 Hyperlipidemia, unspecified; E11.9 Type 2 diabetes mellitus without complications
CPT/HCPCS: 36415; 80048; 80061; 82043; 82570; 83036; 84450; 84460

== ENCOUNTER 2025-09-21 09:11 | Outpatient (AMB) | payer MEDICARE, MEDICAID, SELFPAY ==
[2025-09-21 09:31] VITALS: BP 134/80; PULSE 76; RESP 16; TEMP 36.7; O2SAT 96; BMI 26.9
--- NOTE | 2025-09-21 09:31 | A.OFFPC_ITS ---
Vital Signs 09/21/25 09:31 Height 5 ft 7 in Weight 172 lb BMI 26.9 BP 134/80 Blood Pressure Location Rt brachial Position Sitting Respiration 16 Pulse 76 Pulse Source Pulse Oximeter Temp 98.1 F Temp Source Oral Pulse Oximetry (%) 96 Oxygen Delivery Method Room Air Intake Visit Reasons: 4 months f/up Intake Note: Pt is here today for his 4mo. f/u Allergies Seasonal Allergies Allergy (Unknown, Verified 09/21/25 10:08) Unknown Medication List - Last Reconciled 09/21/25 by Allyn Albarran MD amlodipine 5 mg PO DAILY blood pressure monitor BP cuff and monitor blood sugar diagnostic ([employer] Ultra Test strips) Check fasting blood sugar once daily before a meal blood-glucose meter ([employer] Ultra2 Meter) As directed cane As directed cane Use As directed NS cetirizine 10 mg PO BEDTIME fluticasone propionate 50 mcg/actuation 1 spray intranasal DAILY hydroxyzine HCl 10 mg PO BID PRN lancets ([employer] Delica Safety Lancet) Check blood sugar once a day before meals losartan 100 mg PO DAILY metformin ER 500 mg PO DAILY metoprolol tartrate 25 mg PO BID rosuvastatin 5 mg PO Q2D 3 months Tobacco use date assessed: 09/21/25 Dental Screening Dental Screen Date: 05/25/25 HPI HPI Comments History of Present Illness Details The patient is a 60 year old male presenting for a follow-up visit for management of diabetes. Currently taking metformin ER 500 mg once daily. Recent lab work showed a morning blood sugar of 127 and a hemoglobin A1c of 6.3%, and negative urine microalbuminuria. He has hypertension, take losartan in the morning , amlodipine at night, and metoprolol tartrate 25 mg taken 1 tablet twice a day. Currently takes rosuvastatin every other day, with normal fasting lipids levels noted on recent labs done The patient has a history of anxiety, for which he takes hydroxyzine as needed. He had colon cancer screening through a Cologuard test done last year with negative findings. His immunizations are up to date, including an influenza shot in May of this year, and pneumonia and tetanus shots last year. He has not received the shingles vaccine. [facility] Medical History Dyslipidemia Environmental and seasonal allergies Social anxiety disorder Essential hypertension Type 2 diabetes mellitus without complication, without long-term current use of insulin Traumatic blindness of left eye Surgical History No pertinent past surgical history Family History Mother Diabetes type 2, controlled Mental health disorder Brother Diabetes type 2, controlled Father Mental health disorder Sister Mental health disorder Social History Housing: Apartment Patient Tobacco Use Status: Never used Tobacco e-Cigarette/Vaping Use: Never Used service: No Current occupational status: disabled Current occupational exposures/hazards: No Cognitive needs: Yes Hearing needs: No Vision needs: Yes Questionnaire PHQ-9 Over the last 2 weeks, how often have you been bothered by any of the following problems? 1. Little interest or pleasure in doing things: not at all 2. Feeling down, depressed, or hopeless: not at all 3. Trouble falling or staying asleep, or sleeping too much: not at all 4. Feeling tired or having little energy: not at all 5. Poor appetite or overeating: not at all 6. Feeling bad about yourself - or that you are a failure or have let yourself or your family down: not at all 7. Trouble concentrating on things, such as reading the newspaper or watching television: not at all 8. Moving or speaking so slowly that other people could have noticed. Or the opposite - being so fidgety or restless that you have been moving around a lot more than usual: not at all 9. Thoughts that you would be better off or of hurting yourself in some way: not at all Total score: 0 Depression Screening Interpretation: Negative Depression Screening Done: Yes Source: Developed by Drs. Sylvester Jung, Molly Whitman, Hema Haji and colleagues, with an educational wilfredo from [employer]. Thrive Questionnaire Date Thrive assessed: 01/25/25 I am a: Patient What is your living situation today?: I have a steady place to live Within the past 12 months, did the food you bought not last and you didn't have the money to get more?: Never true Within the past 12 months, did you worry whether your food would run out before you got money to buy more?: Never true Do you have trouble paying for medicines?: No Do you have trouble getting transportation to medical appointments?: No Do you have trouble paying your heating and electricity bill?: No Do you have trouble taking care of your child, family member or friend?: No Do you have trouble with day-to-day activities such as bathing, preparing meals, shopping, managing finances, etc.?: No Are you currently unemployed and looking for a job?: No Are you interested in more education?: No Please select the resources that you would like help with: None Currently or been in a relationship where the following occur: No concerns reported THRIVE Score: 0 ELLYN-7 AMB Questionnaire ELLYN-7 Date ELLYN - 7 assessed: 01/25/25 Source: Developed by Drs. Sylvester Jung, Molly Whitman, Hema Haji and colleagues, with an educational wilfredo from [employer]. Review of Systems Const Denies fatigue, Denies frequent falls, Denies lethargy, Denies poor appetite, Denies snoring, Denies stops breathing during sleep and Denies weakness Eyes Details: Traumatic blindness left eye and blurry vision on right[facility] Reports no additional complaints Card Denies chest pain, Denies leg edema, Denies lightheadedness, Denies palpitations, Denies dyspnea, Denies dyspnea on exertion and Denies orthopnea Resp Denies cough, Denies dyspnea, Denies dyspnea on exertion and Denies snoring GI Denies abdominal pain and Denies change in bowel habits Denies dysuria and Denies urinary frequency Musc Denies arthralgias, Denies muscle weakness and Denies numbness Skin/Breast Denies rash Neuro Denies Abnormal speech present, Denies frequent falls, Denies numbness and Denies weakness Psych Reports no additional complaints Endo Denies fatigue and Denies palpitations Yohan/Lymph Reports no additional complaints Aller/Immun Reports seasonal rhinorrhea Physical exam (Primary Care) Vital Signs: Last Vital Signs Temp 98.1 F 09/21/25 09:31 Pulse 76 09/21/25 09:31 Resp 16 09/21/25 09:31 BP 134/80 09/21/25 09:31 Pulse Ox 96 09/21/25 09:31 Oxygen Delivery Method Room Air 09/21/25 09:31 BMI result Body Mass Index 26.9 Tobacco/Smoking Status: Tobacco use Status Tobacco use date assessed 09/21/25 09/21/25 09:33 Patient Tobacco Use Status Never used Tobacco 09/21/25 09:33 e-Cigarette/Vaping Use Never Used 09/21/25 09:33 Depression Screening Interpretation: Negative Thrive Assessment: Date of Thrive Assessment Date Thrive assessed 01/25/25 09/21/25 09:33 Currently or been in a relationship where the following occur: No concerns reported Const Other: Blind in left eye, walks with a cane, has engine hostler accompanying him today General: no acute distress and alert Nutritional Appearance: average body habitus Orientation/consciousness: patient oriented x3 HENMT Ears: external ears normal General nose exam: Normal external nose present and No nasal discharge present Face and sinus: Yes face symmetric Mouth: moist mucous membranes Eyes Other: Corneal opacity left eye Neck Neck: Yes full ROM, Yes no lymphadenopathy and Yes supple Resp Effort & Inspection: normal respiratory effort Auscultation: clear to auscultation bilaterally Cardio Rate: regular rate Rhythm: regular rhythm Heart sounds: S1 normal heart sound present and S2 normal heart sound present GI Palpation (GI): Soft to palpation, nontender and no masses Auscultation: normal bowel sounds General: Yes no CVA tenderness Back/Spine/Pelvis Back: no CVA tenderness and No back tenderness Skin General skin exam: no rashes or lesions noted Nails: yellow and thickened (Toenails both feet) Neuro General: patient oriented x3, gait normal, tone normal, moves all extremities, Normal light touch and pain sensation and no focal motor deficits Cranial nerves: Yes CN's II-XII intact bilaterally Cognition (Neuro): normal cognition Speech: No Abnormal speech present Extrem Other: Dry skin and Plantar calluses noted in both feet General: Yes full ROM, Yes no joint enlargement, Yes no clubbing, cyanosis or edema and Yes no calf tenderness Psych Appearance: grossly normal and well kempt Mental Status: mental status grossly normal Speech and movement: Normal speech and movement present Affect: normal affect Attitude: cooperative Thought process: Normal thought process present Thought content: Normal thought content present Results Reviewed Results Reviewed: Laboratory Tests 05/25/25 09/18/25 09:34 06:57 Estimat Average Glucose 134 Hgb A1c (Clinic) 6.2 H Hemoglobin A1c % 6.3 H Urine Creatinine 97.47 Urine Microalbumin < 5.0 Microalb/Creat Ratio TNP Name: Faheem Weber Age/Sex: 60/M : 1965 Unit#: [id number] Attend Dr: Allyn Albarran MD Re09/18/25 Status: DEP REF Location: [facility] Disch: SPEC : [id number] ALISIA: 09/18/25 STATUS: COMP REQ : [id number] RECD: 09/18/[address]: Allyn Albarran MD COMP: 09/18/25 ENTERED: 09/18/[address]: ORDERED: Met Prof Fast, AST, ALT, Lipid Panel Test Result Flag Reference Sodium 140 135-145 mmol/L Potassium 4.4 3.3-5.1 mmol/L CL 107 96-108 mmol/L CO2 27 22-29 mmol/L Gap 10 L 12-20 BUN 20 H 9-16 mg/dL Creat 1.13 0.5-1.4 mg/dL eGFR > 60 Chronic Kidney Disease: Estimated GFR < 60 mL/min/1.73m2 Severe Kidney Disease: Estimated GFR < 15 mL/min/1.73m2 FBS 127 H 60-99 mg/dL A fasting glucose of 126 mg/dl or greater on more than one occasion is considered diagnostic of diabetes. CA 9.8 8.4-10.2 mg/dL AST (GOT) 32 5-37 U/L ALT (GPT) 23 0-40 U/L Triglyceride 95 <150 mg/dL Desirable Triglyceride: less than 150 mg/dL Borderline High Triglyceride 150-199 mg/dL High Triglyceride: 200-499 mg/dL Very High Triglyceride: greater than or equal to 5OO mg/dL Cholesterol 151 <200 mg/dL Desirable Cholesterol: less than 200 mg/dL Borderline High Cholesterol: 200-239 mg/dL High Cholesterol: greater than 239 mg/dL LDL Calculated 82 <100 mg/dL Desirable LDL: less than 100 mg/dL Near Optimal/Above Optimal LDL: 110-129 mg/dL Borderline High LDL: 130-159 mg/dL High LDL: 160-189 mg/dL Very High LDL: greater than or equal to 190 mg/dL HDL 50 >40 mg/dL Desirable HDL: greater than 40 mg/dL Note: This HDL assay may give artificially low results in patients with liver disease. Coding Level of Care Code Est Pt Level 4 (33353) Diagnoses Essential hypertension I10 Type 2 diabetes mellitus without complication, without long-term current use of insulin E11.9 Social anxiety disorder F40.10 Dyslipidemia E78.5 Assessment & Plan Assessment & Plan (1) Essential hypertension: Code(s): I10 - Essential (primary) hypertension Category: Medical Plan: Continue amlodipine, metoprolol tartrate and losartan same dose. He has been out of losartan for two days due to a pharmacy issue. The office will contact [facility] on [address] to resolve the prescription rejection. A new prescription for metoprolol for a 90-day supply with four refills will be sent. A printout of the medication list will be provided to the patient to show the pharmacy. He will continue his current medications. (2) Type 2 diabetes mellitus without complication, without long-term current use of insulin: Code(s): E11.9 - Type 2 diabetes mellitus without complications Category: Medical Plan: Recent lab results reviewed with patient, with sugar and hemoglobin A1c stable and at goal . continue metformin ER 500 mg daily Reinforced diabetic diet and regular exercise with patient. Patient advised to inspect feet daily, for any signs of injury, callus or infection. Compliance with diet and regular exercise again stressed. Follow-up in January 2026 after fasting labs done (3) Social anxiety disorder: Code(s): F40.10 - Social phobia, unspecified Category: Medical Plan: Takes hydroxyzine 10 mg once a day as needed for acute anxiety attacks (4) Dyslipidemia: Code(s): E78.5 - Hyperlipidemia, unspecified Category: Medical Plan: Fasting lipids are well controlled on rosuvastatin 5 mg taken every other day, will continue on current treatment Plan The patient is up to date on his influenza, pneumonia, and tetanus vaccinations, and completed a Cologuard screening last year. It is recommended he receive the shingles vaccine (two doses, 2-6 months apart) and the RSV vaccine. He should not receive them at the same time. He is due for another booster at age 64. He will follow up in six months, with scheduled appointments in January with Dr. Garces and a physical with me. Patient was informed and verbally consented to the use of an ambient scribe for clinic note documentation during this visit. Orders: Orders 2 Alanine Aminotransferase 01/12/26 F40.10 - Social phobia, unspecified, I10 - Essential (primary) hypertension, E78.5 - Hyperlipidemia, unspecified, E11.9 - Type 2 diabetes mellitus without complications Hemoglobin A1c 01/12/26 F40.10 - Social phobia, unspecified, I10 - Essential (primary) hypertension, E78.5 - Hyperlipidemia, unspecified, E11.9 - Type 2 diabetes mellitus without complications Vitamin D 25-OH Total 01/12/26 F40.10 - Social phobia, unspecified, I10 - Essential (primary) hypertension, E78.5 - Hyperlipidemia, unspecified, E11.9 - Type 2 diabetes mellitus without complications Aspartate Amino Transferase 01/12/26 F40.10 - Social phobia, unspecified, I10 - Essential (primary) hypertension, E78.5 - Hyperlipidemia, unspecified, E11.9 - Type 2 diabetes mellitus without complications Basic Metabolic Panel Fasting 01/12/26 F40.10 - Social phobia, unspecified, I10 - Essential (primary) hypertension, E78.5 - Hyperlipidemia, unspecified, E11.9 - Type 2 diabetes mellitus without complications Lipid Panel 01/12/26 F40.10 - Social phobia, unspecified, I10 - Essential (primary) hypertension, E78.5 - Hyperlipidemia, unspecified, E11.9 - Type 2 diabetes mellitus without complications Microalbumin, Random (w Creat) 01/12/26 F40.10 - Social phobia, unspecified, I10 - Essential (primary) hypertension, E78.5 - Hyperlipidemia, unspecified, E11.9 - Type 2 diabetes mellitus without complications Medications: Changed From metoprolol tartrate 25 mg PO BID 180 tabs 1RF I10 - Essential (primary) hypertension To metoprolol tartrate 25 mg PO BID 180 tabs 4RF 3 months I10 - Essential (primary) hypertension From hydroxyzine HCl 10 mg PO BID PRN 20 tabs 0RF itching To hydroxyzine HCl 10 mg PO DAILY PRN 30 tabs 1RF acute anxiety
== END 2025-09-21 10:31 | disposition home or self-care (01) ==
LOC: HO.HMCC 09:11
PROVIDERS: PCP Internal Medicine; Visit Provider Internal Medicine
DX: I10 Essential (primary) hypertension (principal); E11.9 Type 2 diabetes mellitus without complications; F40.10 Social phobia, unspecified; E78.5 Hyperlipidemia, unspecified

== ENCOUNTER → 2025-09-21 09:11 | Outpatient (BNVA) | payer OTHER, SELFPAY | PROVIDERS: PCP Internal Medicine; Visit Provider Internal Medicine | DX: E11.9 Type 2 diabetes mellitus without complications (principal); I10 Essential (primary) hypertension; F41.9 Anxiety disorder, unspecified; F40.10 Social phobia, unspecified; E78.5 Hyperlipidemia, unspecified; Z79.84 Long term (current) use of oral hypoglycemic drugs | CPT/HCPCS: 96127; 99212 ==